=== PATIENT | male | born 1970 ===

== ENCOUNTER 2020-05-12 10:31 | Outpatient (REF) | payer OTHER, SELFPAY ==
[2020-05-12 14:41] LABS: C Reactive Protein 1.41 mg/dL (< or = 0.50); Uric Acid 5.8 mg/dL (3.4-7.0)
[2020-05-12 15:19] LABS: Erythrocyte Sedimentation Rate 23 MM/HR (0-15)
== END 2020-05-12 10:32 | disposition home or self-care (01) ==
LOC: HO.WFDLDS 10:31
PROVIDERS: Visit Provider Hospitalist
DX: M79.672 Pain in left foot (principal)
CPT/HCPCS: 36415; 84550; 85652; 86140

== ENCOUNTER 2020-06-29 18:41 | Inpatient (IN) | payer OTHER, SELFPAY ==
--- NOTE | 2020-06-29 | ECG_ITS ---
Test Reason : CHEST PAIN Blood Pressure : / mmHG Vent. Rate : 083 BPM Atrial Rate : 083 BPM P-R Int : 160 ms QRS Dur : 092 ms QT Int : 402 ms P-R-T Axes : 070 013 063 degrees QTc Int : 472 ms Sinus rhythm with frequent Premature ventricular complexes Intra-ventricular conduction delay Abnormal ECG No previous ECGs available Referred By: Generic ED Physician Electronically Signed By:LAWANDA FELICIANO MD
--- NOTE | 2020-06-29 | XR_ITS ---
EXAMINATION: XR CHEST CLINICAL INFORMATION: Chest pain COMPARISON: 11/23/2012 TECHNIQUE: 2 views of the chest were obtained. FINDINGS: Again seen are old healed left rib and clavicular/shoulder fractures. No other significant abnormality is noted involving the heart, lungs, mediastinum, bony thorax or soft tissues. XR/XR chest 2V IMPRESSION: No acute intrathoracic disease
[2020-06-29 19:18] VITALS: BP 155/95; PULSE 78; RESP 18; TEMP 36.2; O2SAT 96; BMI 28.1
--- NOTE | 2020-06-29 20:23 | ED.CHESTPAIN ---
HPI - Chest Pain General Chief Complaint: Chest Pain Stated Complaint: Chest Pain Time Seen by Provider: 06/29/20 20:23 Source: patient Mode of arrival: ambulatory Limitations: no limitations History of Present Illness HPI narrative: patient with no known coronary artery disease very healthy person as such nonsmoker went for bicycle ride around 1500 which he does all the time after half an hour of bike riding noticed mid chest pain heaviness feeling radiating to left arm both arms lasted for about an hour came home check the blood pressure was 184/114 with pulse of 70 repeat blood pressure was 189/105 with pulse rate of 68 patient denied any chest pain but feels funny in the chest at this time. Patient denied any shortness of breath cough syncope or leg swelling MD complaint: chest pain and chest heaviness Onset (ago): hour(s) (1500) Timing of current episode: constant Prior episodes: No Onset: during exertion Pain location: substernal Pain radiation: right arm and left arm Severity: moderate Quality: tightness Relieving factors: nothing Exacerbating factors: nothing Related Data Home Medications Medication Instructions Recorded Confirmed No Known Home Meds 06/29/20 06/29/20 Allergies Allergy/AdvReac Type Severity Reaction Status Date / Time No Known Allergies Allergy Verified 06/29/20 19:18 [facility] Past Medical History Medical History No known health problems Social History Social History Smoked in Last 30 Days: No Use of substances other than those prescribed or required for medical reasons: No Substance Use Type: Marijuana Advance Directives: No Physical Exam Vital Signs: Vital Signs: Last Vital Signs Temp 98.2 F 06/29/20 21:16 Pulse 59 06/30/20 00:35 Resp 14 06/30/20 00:35 BP 149/82 H 06/30/20 00:35 Pulse Ox 96 06/30/20 00:35 Body Mass Index 28.1 Appearance: Alert. Oriented X3. No acute distress. Eyes: Pupils equal, round and reactive to light. ENT: Pharynx normal. Neck: Normal inspection. Neck supple. CVS: Normal heart rate and rhythm. Pulses normal. Respiratory: No respiratory distress. Breath sounds normal. Abdomen: Soft and nontender. Skin: Skin warm and dry. Normal skin color. Normal skin turgor. Extremities: No lower extremity edema. Good range of movement Neuro: Oriented X 3. No motor deficit. No sensory deficit. Course Course Course Narrative: patient with typical cardiac symptoms came with the chest pain no acute STT wave changes in the cardiogram but troponin was 404 which is elevated after arrival patient did not have any chest pain patient was given aspirin and nitro paste on arrival. Case discussed with Dr. Morocho advised to start on heparin planned for cardiac catheterization tomorrow. Patient denies any chest pain at this time MDM - Chest Pain Differential Diagnosis Differential diagnosis: Likely stable angina, unstable angina pectoris and st elevation myocardial infarction Medical Records Data Attestation: I reviewed the patient's medical records. Lab Data Attestation: I reviewed the patient's lab results. Result diagrams: 06/29/20 21:30 06/29/20 21:30 Labs: Lab Results 06/29/20 06/29/20 06/29/20 Range/Units 21:30 21:30 21:30 WBC 11.7 H (4.8-10.8) X10*3/uL RBC 4.71 (4.60-5.80) X10*6/uL Hgb 14.6 (14.0-18.0) g/dl Hct 42.5 (42-52) % MCV 90.2 (80-98) fL MCH 31.0 (27.0-33.0) pg MCHC 34.4 (31.0-36.0) g/dl RDW 11.9 (11.0-16.0) % Plt Count 263 (160-400) X10*3/uL MPV 9.9 (9.4-12.4) fL Immature Gran % (Auto) 0.5 H (0.0-0.4) % Neut % (Auto) 80.4 H (45-73) % Lymph % (Auto) 14.3 L (20-40) % [place] % (Auto) 4.5 (2-11) % Eos % (Auto) 0.1 (0-4) % Baso % (Auto) 0.2 (0-2) % Lymph # (Auto) 1.7 (1.2-4.9) X10*3/uL [place] # (Auto) 0.5 (0.1-1.2) X10*3/uL Eos # (Auto) 0.0 (0.0-0.4) X10*3/uL Baso # (Auto) 0.0 (0.0-0.2) X10*3/uL Abs Immat Gran (auto) 0.06 H (0.00-0.03) X10*3/uL Absolute Neuts (auto) 9.4 H (2.0-8.3) X10*3/uL Absolute Nucleated RBC 0.000 (0.0-0.012) X10*3/uL Nucleated RBC % (auto) 0.0 (0.0-0.2) /100WBC PT 11.9 (10.8-13.0) SEC INR 1.0 (0.9-1.1) APTT 29.6 (24.1-38.0) SEC Sodium 136 (135-145) mmol/L Potassium 4.3 (3.3-5.1) mmol/l Chloride 99 (96-108) mmol/L Carbon Dioxide 26 (22-29) mmol/L Anion Gap 15 (12-20) BUN 12 (9-16) mg/dL Creatinine 0.77 (0.5-1.4) mg/dL Estim Creat Clear Calc 116.0 Estimated GFR > 60 Random Glucose 109 (60-115) mg/dL Calcium 9.8 (8.4-10.2) mg/dL Troponin I High Sens (<3.5-35.0) ng/L 06/29/20 Range/Units 21:30 WBC (4.8-10.8) X10*3/uL RBC (4.60-5.80) X10*6/uL Hgb (14.0-18.0) g/dl Hct (42-52) % MCV (80-98) fL MCH (27.0-33.0) pg MCHC (31.0-36.0) g/dl RDW (11.0-16.0) % Plt Count (160-400) X10*3/uL MPV (9.4-12.4) fL Immature Gran % (Auto) (0.0-0.4) % Neut % (Auto) (45-73) % Lymph % (Auto) (20-40) % [place] % (Auto) (2-11) % Eos % (Auto) (0-4) % Baso % (Auto) (0-2) % Lymph # (Auto) (1.2-4.9) X10*3/uL [place] # (Auto) (0.1-1.2) X10*3/uL Eos # (Auto) (0.0-0.4) X10*3/uL Baso # (Auto) (0.0-0.2) X10*3/uL Abs Immat Gran (auto) (0.00-0.03) X10*3/uL Absolute Neuts (auto) (2.0-8.3) X10*3/uL Absolute Nucleated RBC (0.0-0.012) X10*3/uL Nucleated RBC % (auto) (0.0-0.2) /100WBC PT (10.8-13.0) SEC INR (0.9-1.1) APTT (24.1-38.0) SEC Sodium (135-145) mmol/L Potassium (3.3-5.1) mmol/l Chloride (96-108) mmol/L Carbon Dioxide (22-29) mmol/L Anion Gap (12-20) BUN (9-16) mg/dL Creatinine (0.5-1.4) mg/dL Estim Creat Clear Calc Estimated GFR Random Glucose (60-115) mg/dL Calcium (8.4-10.2) mg/dL Troponin I High Sens 404.3 H (<3.5-35.0) ng/L ECG Data ECG #1: Attestation: I personally reviewed and interpreted this ECG as follows: ECG interpretation date: 06/29/20 ECG interpretation time: 18:47 Prior ECG tracings: not available for review Interpretation: sinus rhythm with heart rate 83 frequent unifocal PVCs no acute ST T wave changes normal axis impression no acute ischemia Critical Care Time Critical Care Time Critical Care Time: Yes Total Critical Care Time: 35 Attestation: critical care involved only patient care and medical decision making Discharge Plan Discharge Clinical Impression: Acute non-ST elevation myocardial infarction (NSTEMI) Patient Disposition: Admitted As Inpatient
[2020-06-29 21:16] VITALS: BP 163/94; PULSE 74; PULSE 75; RESP 17; TEMP 36.8; O2SAT 96
[2020-06-29] MEDS: Aspirin 81 MG TAB.CHEW 324 MG PO (21:55)
[2020-06-29 22:04] LABS: Basophils Percent Auto 0.2 % (0-2); Eosinophils Percent Auto 0.1 % (0-4); Hematocrit 42.5 % (42-52); Hemoglobin 14.6 g/dl (14.0-18.0); Imm Gran Abs Auto 0.06 X10*3/uL (0.00-0.03); Imm Gran Pct Auto 0.5 % (0.0-0.4); Lymphocytes Absolute Auto 1.7 X10*3/uL (1.2-4.9); Lymphocytes Percent Auto 14.3 % (20-40); Mean Corpuscular HGB Conc 34.4 g/dl (31.0-36.0); Mean Corpuscular Volume 90.2 fL (80-98); Mean Platelet Volume 9.9 fL (9.4-12.4); Monocytes Absolute Auto 0.5 X10*3/uL (0.1-1.2); Monocytes Percent Auto 4.5 % (2-11); Neutrophils Absolute Auto 9.4 X10*3/uL (2.0-8.3); Neutrophils Percent Auto 80.4 % (45-73); Platelet Count 263 X10*3/uL (160-400); Red Blood Count 4.71 X10*6/uL (4.60-5.80); Red Cell Distribution Width 11.9 % (11.0-16.0); White Blood Count 11.7 X10*3/uL (4.8-10.8)
[2020-06-29 22:05] LABS: MANUAL DIFF FLAG NO
[2020-06-29 22:12] LABS: Prothrombin Time 11.9 SEC (10.8-13.0)
[2020-06-29 22:14] LABS: Partial Thromboplastin Time 29.6 SEC (24.1-38.0)
[2020-06-29 22:28] LABS: Anion Gap 15 (12-20); Blood Urea Nitrogen 12 mg/dL (9-16); Calcium 9.8 mg/dL (8.4-10.2); Carbon Dioxide 26 mmol/L (22-29); Chloride 99 mmol/L (96-108); Estimated Glomerular Filt Rate > 60; Glucose Random 109 mg/dL (60-115); Potassium 4.3 mmol/l (3.3-5.1); Sodium 136 mmol/L (135-145)
[2020-06-29 22:37] LABS: Troponin-I High Sensitivity 404.3 ng/L (<3.5-35.0)
--- NOTE | 2020-06-29 22:47 | PC.NURSE ---
PROVIDER AT BEDSIDE SPEAKING WITH PATIENT ABOUT STAYING DUE TO ELEVATED TROP.
[2020-06-29] MEDS: Heparin Sodium,Porcine 5,000 UNIT/ML VIAL 5000 UNIT IVPUSH (23:18)
[2020-06-29] MEDS: Heparin Sodium,Porcine/1/2NS 25,000 UNIT/250 ML IV.SOLN 9.8 UNIT IVCONT (23:27)
[2020-06-30] VITALS (9 sets, daily range): BP systolic 149–171; BP diastolic 81–97; PULSE 52–83; RESP 14–23; TEMP 36.3–36.8; O2SAT 96–98
--- NOTE | 2020-06-30 | ECG_ITS ---
Test Reason : ORDER Blood Pressure : / mmHG Vent. Rate : 058 BPM Atrial Rate : 058 BPM P-R Int : 146 ms QRS Dur : 100 ms QT Int : 476 ms P-R-T Axes : 046 010 031 degrees QTc Int : 467 ms Sinus bradycardia Otherwise normal ECG When compared with ECG of 29jun2020 Premature ventricular complexes are no longer Present Referred By: Donn Abrams Electronically Signed By:LAWANDA FELICIANO MD
--- NOTE | 2020-06-30 00:30 | P.HPHOSP_ITS ---
History of Present Illness Date of Service: 06/30/20 Chief Complaint: Chest pain this is a 50-year-old male with no past medical history presents the hospital with complaints of chest pain after going by writing. Patient reports that he is usually very active and by x-ray no similar episode in the past. He reports that while biking he developed midsternal chest pressure that was moderate, radiating to his left arm, constant, mildly improved with stopping biking in going but was still there when he came into the ED. He reports no history of similar episode. No shortness of breath or palpitations. he has no fever or chills, has no headache or change in vision, no cough, no abdominal pain nausea or vomiting, no urinary symptoms no lower extremity edema. No numbness or tingling. On arrival to the ED hemodynamically stable with no significant abnormal vitals Labs are significant for WBC count of 11.7, troponin high sensitivity of 404.3, EKG significant sinus rhythm with frequent PVCs with no other abnormality. Cardiology is consulted, patient started on heparin GGT and will be admitted for further management past medical history: Denies Surgical history: Denies family history: Denies any family history of cardiac disease in father or mother Social history: works in [employer], physically very active and bicycles every day, comes from, Denies tobacco use, do next beer 1-4 beers every other day, no history of withdrawals, smokes marijuana 1 to 2 times a week Review of Systems Review of Systems: Yes all other systems are reviewed and are negative [facility] Medical History No known health problems Social History Smoked in Last 30 Days: No Use of substances other than those prescribed or required for medical reasons: No Substance Use Type: Marijuana Advance Directives: No Meds Allergies Allergy/AdvReac Type Severity Reaction Status Date / Time No Known Allergies Allergy Verified 06/29/20 19:18 Home Medications Medication Instructions Recorded Confirmed Type No Known Home Meds 06/29/20 06/29/20 History Physical Exam Vital Signs and Narrative: Vital Signs: Last Vital Signs Temp 98.2 F 06/29/20 21:16 Pulse 75 06/29/20 21:16 Resp 17 06/29/20 21:16 BP 163/94 H 06/29/20 21:16 Pulse Ox 96 06/29/20 21:16 Body Mass Index 28.1 Const: General: cooperative and no acute distress Orientation/consciousness: patient oriented x3 Eyes: General: appearance normal, both eyes and all related structures Pupils: Equal, round and reactive pupils present Resp: Effort & Inspection: normal respiratory effort and able to speak in complete sentences Auscultation: clear to auscultation bilaterally Cardio: Rate: regular rate Rhythm: regular rhythm GI: Palpation (GI): Soft to palpation Auscultation: normal bowel sounds Skin: General skin exam: no rashes or lesions noted Neuro: General: patient oriented x3 Cranial nerves: Yes Equal, round and reactive pupils present Cognition (Neuro): normal cognition Extrem: General: Yes normal to inspection and Yes no pedal edema Results Labs CBC and Chem 7: 06/29/20 21:30 06/29/20 21:30 Labs: Laboratory Results - last 24 hr 06/29/20 06/29/20 06/29/20 21:30 21:30 21:30 MCV 90.2 MCH 31.0 MCHC 34.4 RDW 11.9 Plt Count 263 MPV 9.9 Immature Gran % (Auto) 0.5 H Neut % (Auto) 80.4 H Lymph % (Auto) 14.3 L [place] % (Auto) 4.5 Eos % (Auto) 0.1 Baso % (Auto) 0.2 Lymph # (Auto) 1.7 [place] # (Auto) 0.5 Eos # (Auto) 0.0 Baso # (Auto) 0.0 Abs Immat Gran (auto) 0.06 H Absolute Neuts (auto) 9.4 H Absolute Nucleated RBC 0.000 Nucleated RBC % (auto) 0.0 PT 11.9 INR 1.0 APTT 29.6 Anion Gap 15 Estim Creat Clear Calc 116.0 Estimated GFR > 60 Random Glucose 109 Calcium 9.8 Troponin I High Sens 06/29/20 21:30 MCV MCH MCHC RDW Plt Count MPV Immature Gran % (Auto) Neut % (Auto) Lymph % (Auto) [place] % (Auto) Eos % (Auto) Baso % (Auto) Lymph # (Auto) [place] # (Auto) Eos # (Auto) Baso # (Auto) Abs Immat Gran (auto) Absolute Neuts (auto) Absolute Nucleated RBC Nucleated RBC % (auto) PT INR APTT Anion Gap Estim Creat Clear Calc Estimated GFR Random Glucose Calcium Troponin I High Sens 404.3 H ECG Interpretation: normal sinus rhythm with PVCs Imaging Radiologist's Impressions: Impressions Chest X-Ray 06/29/20 00:00 IMPRESSION: No acute intrathoracic disease Assessment and Plan (1) Acute non-ST elevation myocardial infarction (NSTEMI): Status: Acute (2) Leukocytosis: Status: Acute still 50-year-old male with no history of medical problems presents to the hospital with chest pain found to have NSTEMI # NSTEMI - chest pain with elevated troponin, no EKG changes - has no significant risk factors Plan: - Start on heparin GGT in the ED, received 325 aspirin - continue heparin drip, will start him on aspirin 81 mg daily, atorvastatin high-dose - echocardiogram - cardiology consult # leukocytosis - most likely reactive - follow CBC
[2020-06-30 00:59] LABS: COVID-19 Test Negative (Negative)
--- NOTE | 2020-06-30 01:37 | PC.NURSE ---
AMBULATES WITH A STEADY GAIT TO BATHROOM.
--- NOTE | 2020-06-30 01:45 | PC.NURSE ---
RETURNED FROM BATHROOM. BACK ON MONITOR. SR/SB. NO APPARENT DISTRESS. BREATHING EVEN, NON-LABORED.
--- NOTE | 2020-06-30 03:31 | PC.NURSE ---
called to give report. Rosa will call back when out of room.
--- NOTE | 2020-06-30 03:45 | PC.NURSE ---
nurse to nurse given to Rosa RN.
--- NOTE | 2020-06-30 03:46 | CA_ITS ---
Transthoracic Echocardiogram Patient (Last, First, Middle): Luther Stewart, Gender: Male Date of : 1970 Age: 50 Procedure Date: 06/30/2020 Procedure Type: Transthoracic Echocardiogram Location: [facility] – [place] Height: 170.18 cm Weight: 81.65 kg BSA: 1.93 m2 Heart Rate: bpm BP: 149 / 82 mmHg Picking Supervisor: Referring MD: Janette Mckay MD Symptoms: NSTEMI Study Quality: Good ECG Rhythm: Sinus Conclusions: - The left ventricular systolic function is low normal. The visually estimated ejection fraction is between 50-55%. - The inferolateral wall, the apical inferior, and mid inferior segments are hypokinetic. - The basal inferior segment is akinetic. Findings Left Ventricle Normal left ventricular cavity size. There is mildly increased left ventricular wall thickness. The left ventricular systolic function is low normal. The visually estimated ejection fraction is between 50-55%. There is no evidence of regional wall motion abnormalities. Diastolic function is normal for age. Wall Motion Rest Echo Findings The inferolateral wall, the apical inferior, and mid inferior segments are hypokinetic. The basal inferior segment is akinetic. Right Ventricle Normal right ventricular cavity size and systolic function. Atria Both atria are normal in size. Interatrial shunt cannot be excluded by color Doppler. Aortic Valve Normal aortic valve structure and function. There is no aortic valve stenosis. There is no aortic valve regurgitation. Mitral Valve Normal mitral valve structure and function. There is trace mitral valve regurgitation. There is no mitral valve stenosis. Pulmonic Valve The pulmonic valve is likely normal. Tricuspid Valve Normal tricuspid valve structure and function. There is trace tricuspid valve regurgitation. Normal right atrial pressure. There is no evidence of pulmonary hypertension. Great Vessels All visible segments of the aorta are normal in size. The pulmonary artery was not well visualized. Venous The inferior vena cava is normal in size and collapses greater than 50% with inspiration. Pericardium/Pleural There is no evidence of pericardial effusion. Prior Study Comparison No prior study available for comparison. Measurements 2D Linear Measurements IVSd: 1.13 0.6-0.9/0.6-1.0 cm LVIDd: 4.56 3.9-5.3/4.2-5.9 cm LVIDd Index: 2.36 2.4-3.2/2.2-3.1 cm/m2 LVIDs: 3.85 2.0-3.6 cm LVPWd: 1.04 0.7-1.1 cm Ao Root: 3.30 2.1-3.5 cm LA Diam: 3.40 2.7-3.8/3.0-4.0 cm LAIDs Index: 1.76 1.5-2.3 cm/m2 LV Mass: 218.40 67-162/88-224 g LV Mass Index: 113.16 43-95/49-115 g/m2 LVOT Diam: 2.10 3.0+(-)1.3 cm Mitral Valve MV Pk E: 0.70 MV PK A: 0.78 MV Decel Time: 227.00 E/A: 0.90 E'Lateral: 12.90 E'Medial: 5.71 E/E' Med: 12.30 E/E' Lat: 5.40 PHT: 66.00 MVA PHT: 3.33 Decel [place]: 3.10 Aortic Valve AoV Pk Ankur: 1.53 AoV Mn Ankur: 0.93 AoV VTI: 0.35 AoV Pk Grad: 9.00 Aov Mn Grad: 4.00 [place] Cont.VTI: 2.61 LVOT LVOT Pk Ankur: 1.23 LVOT Mn Ankur: 0.73 LVOT VTI: 0.26 LVOT Pk Grad: 6.00 LVOT Mn Grad: 3.00 LVOT Diam: 2.10 LVOT Area: 3.46 Diastolic Function MV Pk E: 0.70 MV Pk A: 0.78 E/A: 0.90 E'Medial: 5.71 E/E' Med: 12.30 E' Laterial: 12.90 E/E' Lat: 5.40 Tricuspid Valve TR Pk Ankur: 2.25 TR Pk Grad: 20.00 Great Vessels Aorta Ao Root-2D: 3.30 2.0-3.7 cm Ao Asc: 3.30 2.1-3.4 cm Pulmonary Valve PV Pk Ankur: 0.84 Peak PV Grad: 3.00 Updated in Other Vendor System with Status of Final Donn Abrams MD electronically signed on 06/30/2020 1:09:49 PM with status of Final
[2020-06-30] MEDS: Atorvastatin Calcium 80 MG TABLET PO (04:26)
[2020-06-30 06:57] LABS: PTT Heparin Drip 56.7 SEC (53-77.9)
--- NOTE | 2020-06-30 08:55 | MHC.CM.PN ---
CM met with Patient. Patient lives in a house with his 13 year old Daughter and his Daughter's Mother. 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 Patient's goal is to return home and CM has initiated and will follow for dc planning.
[2020-06-30] MEDS: Aspirin 81 MG TAB.CHEW PO (09:19)
[2020-06-30] MEDS: Nitroglycerin 0.4 MG TAB.SUBL SUBLINGUAL (11:11)
[2020-06-30] MEDS: Ticagrelor 90 MG TABLET 180 MG PO (11:11)
--- NOTE | 2020-06-30 11:40 | P.CONCA_ITS ---
History of Present Illness History of Present Illness Date of Consult: June 30, 2020 Requesting physician: Michele Recinos Chief complaint: Chest Pain/NSTEMI Narrative: Pleasant 50-year-old gentleman here for chest discomfort. Yeste rday he was riding his bike around 15:45 when he started feeling indigestion like feeling. He said he stopped and rested but the discomfort did not improve. He said he rolled back to his car and then came back home. His girlfriend checked his blood pressure which was elevated. After that he was brought into the hospital. He ruled in for NSTEMI. His ECG initially showed subtle inferior ST elevations. He is still having approximately 2 to 3/10 indigestion like feeling. His blood pressure is mildly elevated. He has been on heparin drip. He denies any bleeding issues. He has not been on any medications before. He has been very active including biking and regular exercise with no symptoms before . Review of Systems Review of Systems: Chest discomfort. Yes all other systems are reviewed and are negative PMFSH Past Medical History Medical History No known health problems Social History Social History Household Members: Significant Other and Children Housing: House Do you presently have visiting nurse or other home services: No Smoking Status: Never smoker Smoked in Last 30 Days: No Second Hand Smoke Exposure: No Use of substances other than those prescribed or required for medical reasons: Yes Substance Use Type: Marijuana Substance Use Frequency: Weekly Last Used Substance: Days (ago) Have you been hit, kicked, punched, or otherwise hurt by someone within the past year? If so, by whom?: No Do you feel safe in your current relationship?: Yes Is there a partner from a previous relationship who is making you feel unsafe now?: No Are you made to feel afraid or neglected: No Advance Directives: No Do you have thoughts of harming others: None Do you have a plan to hurt others: No Plan Recently lost weight without trying: No service: No Current occupational status: employed Meds Allergies Allergy/AdvReac Type Severity Reaction Status Date / Time No Known Allergies Allergy Verified 06/29/20 19:18 Home Medications Medication Instructions Recorded Confirmed Type No Known Home Meds 06/29/20 06/29/20 History Physical Exam Vital Signs: Vital Signs: Last Vital Signs Temp 97.9 F 06/30/20 07:59 Pulse 83 06/30/20 11:11 Resp 18 06/30/20 07:59 BP 171/97 H 06/30/20 07:59 Pulse Ox 97 06/30/20 07:59 Body Mass Index 28.1 GENERAL APPEARANCE: in no acute distress, well developed, well nourished. HEENT: unremarkable. HEAD: normocephalic, atraumatic. NECK/THYROID: no carotid bruit, no jugular venous distention. SKIN: no suspicious lesions, warm and dry. HEART: no murmurs, regular rate and rhythm, S1, S2 normal. LUNGS: clear to auscultation bilaterally. ABDOMEN: normal, bowel sounds present, soft, nontender, nondistended. EXTREMITIES: no clubbing, cyanosis, or edema. PERIPHERAL PULSES: equal. NEUROLOGIC: nonfocal, alert and oriented. PSYCH: mood/affect full range. Results Labs and Meds Result diagrams: 06/29/20 21:30 06/29/20 21:30 Lab results: Laboratory Results - last 24 hr 06/29/20 06/29/20 06/29/20 21:30 21:30 21:30 WBC 11.7 H RBC 4.71 Hgb 14.6 Hct 42.5 MCV 90.2 MCH 31.0 MCHC 34.4 RDW 11.9 Plt Count 263 MPV 9.9 Immature Gran % (Auto) 0.5 H Neut % (Auto) 80.4 H Lymph % (Auto) 14.3 L [place] % (Auto) 4.5 Eos % (Auto) 0.1 Baso % (Auto) 0.2 Lymph # (Auto) 1.7 [place] # (Auto) 0.5 Eos # (Auto) 0.0 Baso # (Auto) 0.0 Abs Immat Gran (auto) 0.06 H Absolute Neuts (auto) 9.4 H Absolute Nucleated RBC 0.000 Nucleated RBC % (auto) 0.0 PT 11.9 INR 1.0 APTT 29.6 PTT (Heparin Protocol) Sodium 136 Potassium 4.3 Chloride 99 Carbon Dioxide 26 Anion Gap 15 BUN 12 Creatinine 0.77 Estim Creat Clear Calc 116.0 Estimated GFR > 60 Random Glucose 109 Calcium 9.8 Troponin I High Sens COVID-19 ([facility]) COVID-19 Clin Com 06/29/20 06/30/20 06/30/20 21:30 00:32 00:32 WBC RBC Hgb Hct MCV MCH MCHC RDW Plt Count MPV Immature Gran % (Auto) Neut % (Auto) Lymph % (Auto) [place] % (Auto) Eos % (Auto) Baso % (Auto) Lymph # (Auto) [place] # (Auto) Eos # (Auto) Baso # (Auto) Abs Immat Gran (auto) Absolute Neuts (auto) Absolute Nucleated RBC Nucleated RBC % (auto) PT INR APTT PTT (Heparin Protocol) Sodium Potassium Chloride Carbon Dioxide Anion Gap BUN Creatinine Estim Creat Clear Calc Estimated GFR Random Glucose Calcium Troponin I High Sens 404.3 H 1579.2 H D COVID-19 ([facility]) Negative COVID-19 Clin Com See Note 06/30/20 05:27 WBC RBC Hgb Hct MCV MCH MCHC RDW Plt Count MPV Immature Gran % (Auto) Neut % (Auto) Lymph % (Auto) [place] % (Auto) Eos % (Auto) Baso % (Auto) Lymph # (Auto) [place] # (Auto) Eos # (Auto) Baso # (Auto) Abs Immat Gran (auto) Absolute Neuts (auto) Absolute Nucleated RBC Nucleated RBC % (auto) PT INR APTT PTT (Heparin Protocol) 56.7 Sodium Potassium Chloride Carbon Dioxide Anion Gap BUN Creatinine Estim Creat Clear Calc Estimated GFR Random Glucose Calcium Troponin I High Sens COVID-19 ([facility]) COVID-19 Clin Com Assessment and Plan (1) Acute non-ST elevation myocardial infarction (NSTEMI): Status: Acute Pleasant 50-year-old gentleman with the chest discomfort and NSTEMI. He initially had subtle inferior ST elevations which are not present anymore. He still has some indigestion like feeling ongoing. He is on heparin drip. Continue the aspirin. I am adding Brilinta 180 mg load. Continue metoprolol b.i.d.. I am putting nitroglycerin paste on him. I discussed with him about cardiac catheterization and he agrees. I am going to transfer him to [facility] progressive care unit. He will stay NPO as there is a possibility that he will need cardiac catheterization later today. Thank you for allowing me to participate in the care of your patient. Please feel free to contact me if you have any questions. Procedures Abscess I/D Date of Service: 06/30/20
[2020-06-30 12:07] LABS: PTT Heparin Drip 48.7 SEC (53-77.9)
--- NOTE | 2020-06-30 12:25 | PM.DS ---
DS: Providers Provider Date of admission: 06/30/20 00:29 Primary care physician: None Physician Consults: 06/30/20 03:46 Consult to Cardiology Routine Consulting Provider: Srinivas Morocho Reason for consultation: NSTEMI Has provider been notified: Yes DS: Diagnosis Discharge Diagnosis (1) Acute non-ST elevation myocardial infarction (NSTEMI): Status: Acute DS: Medications Discharge Medications Home Medications: Previous Rx's Medication Instructions Recorded aspirin 81 mg PO DAILY 1 Days #1 tab 06/30/20 atorvastatin 80 mg PO BEDTIME 1 Days #1 tab 06/30/20 heparin (porcine) 3,265.88 unit IVPUSH BOLUS PRN 1 06/30/20 Days ml heparin(porcine) in 0.45% NaCl 25,000 unit CONTINUOUS IV INFUSION 06/30/20 .Q0M 1 Days ml metoprolol tartrate 25 mg PO BID 1 Days #2 tab 06/30/20 nitroglycerin [Nitro-Bid] 0.5 inch TRANSDERMAL RQ6H WHILE 06/30/20 AWAKE 1 Days g nitroglycerin [Nitrostat] 0.4 mg SUBLINGUAL Q5M PRN 1 Days 06/30/20 tab DS: Summary Hospital Course Hospital Course: Admission note HPI this is a 50-year-old male with no past medical history presents the hospital with complaints of chest pain after going by writing. Patient reports that he is usually very active and by x-ray no similar episode in the past. He reports that while biking he developed midsternal chest pressure that was moderate, radiating to his left arm, constant, mildly improved with stopping biking in going but was still there when he came into the ED. He reports no history of similar episode. No shortness of breath or palpitations. he has no fever or chills, has no headache or change in vision, no cough, no abdominal pain nausea or vomiting, no urinary symptoms no lower extremity edema. No numbness or tingling. On arrival to the ED hemodynamically stable with no significant abnormal vitals Labs are significant for WBC count of 11.7, troponin high sensitivity of 404.3, EKG significant sinus rhythm with frequent PVCs with no other abnormality. Cardiology is consulted, patient started on heparin GGT and will be admitted for further management Hospital course The patient was admitted to the hospital on heparin drip for treatment of acute coronary syndrome suggested by EKG and elevated troponin. Her night was uneventful but her high sensitive troponin increased from 404 too 1579. he received aspirin, atorvastatin, nitroglycerin as needed with fair response. Evaluated by Cardiology in the morning who recommended transfer for cardiac angiogram at a tertiary center pending echo reports. To continue heparin drip at time of discharge Time Spent with Patient Time attestation: Total time spent providing and/or coordinating discharge services: Physical Exam Vital Signs: Vital Signs: Last Vital Signs Temp 97.9 F 06/30/20 07:59 Pulse 83 06/30/20 11:11 Resp 18 06/30/20 07:59 BP 171/97 H 06/30/20 07:59 Pulse Ox 97 06/30/20 07:59 Body Mass Index 28.1 Constitutional : Alert, oriented, not in distress Neck : Normal inspection, Supple Cardiovascular : RRR, S1 S2, no lower extremity edema Respiratory : Good bilateral air entry, no crackles, wheezes or rhonchi Gastrointestinal: soft, lax, Normal bowel sounds, Non tender Skin : Warm/Dry, No rash Neurological : Alert & oriented x3, No focal deficit DS: Data Data Completed and Pending Labs on day of discharge: 06/29/20 ECG 12 lead EKG Stat XR chest 2V Stat 06/29/20 19:23 EKG Documentation DIRECTED 06/29/20 20:30 Aspirin 324 mg PO ONCE ONE Nitroglycerin 2 % Oint [Nitro-Bid] 1 inch TRANSDERMA ONCE ONE 06/29/20 21:30 Basic Metabolic Panel Stat Complete Blood Count Auto Diff Stat Partial Thromboplastin Time Stat Prothrombin Time INR Stat Troponin-I High Sensitivity Stat 06/29/20 22:57 Heparin Sodium,Porcine 5,000 unit IVPUSH BOLUS ONE 06/30/20 ECG 12 lead EKG Stat 06/30/20 00:25 Transfer Order Routine 06/30/20 00:32 COVID-19 ID NOW ([facility]) Stat Troponin-I High Sensitivity Stat 06/30/20 03:46 Atorvastatin Calcium [Lipitor] 80 mg PO ONCE ONE 06/30/20 05:27 PTT Heparin Drip Stat 06/30/20 10:24 Ticagrelor [Brilinta] 180 mg PO ONCE ONE 06/30/20 10:25 Nitroglycerin [Nitrostat] 0.4 mg SUBLINGUAL ONCE ONE 06/30/20 11:38 PTT Heparin Drip Stat Laboratory Last Values WBC 11.7 X10*3/uL (4.8-10.8) H 06/29/20 21:30 RBC 4.71 X10*6/uL (4.60-5.80) 06/29/20 21: Hgb 14.6 g/dl (14.0-18.0) 06/29/20 21: Hct 42.5 % (42-52) 06/29/20 21: MCV 90.2 fL (80-98) 06/29/20 21: MCH 31.0 pg (27.0-33.0) 06/29/20 21: MCHC 34.4 g/dl (31.0-36.0) 06/29/20: RDW 11.9 % (11.0-16.0) 06/29/20 21: Plt Count 263 X10*3/uL (160-400) 06/29/20 21: MPV 9.9 fL (9.4-12.4) 06/29/20 21: Immature Gran % (Auto) 0.5 % (0.0-0.4) H 06/29/20 21: Neut % (Auto) 80.4 % (45-73) H 06/29/20 21: Lymph % (Auto) 14.3 % (20-40) L 06/29/20 21: Rooks % (Auto) 4.5 % (2-11) 06/29/20: Eos % (Auto) 0.1 % (0-4) 06/29/20: Baso % (Auto) 0.2 % (0-2) 06/29/20 21: Lymph # (Auto) 1.7 X10*3/uL (1.2-4.9) 06/29/20: Rooks # (Auto) 0.5 X10*3/uL (0.1-1.2) 06/29/20 21: Eos # (Auto) 0.0 X10*3/uL (0.0-0.4) 06/29/20 21: Baso # (Auto) 0.0 X10*3/uL (0.0-0.2) 11/22/20 21:30 Abs Immat Gran (auto) 0.06 X10*3/uL (0.00-0.03) H 06/29/20 21:30 Absolute Neuts (auto) 9.4 X10*3/uL (2.0-8.3) H 06/29/20 21:30 Absolute Nucleated RBC 0.000 X10*3/uL (0.0-0.012) 06/29/20 21: Nucleated RBC % (auto) 0.0 /100WBC (0.0-0.2) 06/29/20 21:30 PT 11.9 SEC (10.8-13.0) 06/29/20 21:30 INR 1.0 (0.9-1.1) 06/29/20 21:30 APTT 29.6 SEC (24.1-38.0) 06/29/20 21:30 PTT (Heparin Protocol) 48.7 SEC (53-77.9) L 06/30/20 11:38 Sodium 136 mmol/L (135-145) 06/29/20 21:30 Potassium 4.3 mmol/l (3.3-5.1) 06/29/20 21:30 Chloride 99 mmol/L (96-108) 06/29/20 21:30 Carbon Dioxide 26 mmol/L (22-29) 06/29/20 21:30 Anion Gap 15 (12-20) 06/29/20 21:30 BUN 12 mg/dL (9-16) 06/29/20 21:30 Creatinine 0.77 mg/dL (0.5-1.4) 06/29/20 21:30 Estim Creat Clear Calc 116.0 06/29/20 21:30 Estimated GFR > 60 06/29/20 21:30 Random Glucose 109 mg/dL (60-115) 06/29/20 21:30 Calcium 9.8 mg/dL (8.4-10.2) 06/29/20 21:30 Troponin I High Sens 1579.2 ng/L (<3.5-35.0) H D 06/30/20 00:32 COVID-19 ([facility]) Negative (Negative) 06/30/20 00:32 COVID-19 Clin Com See Note 06/30/20 00:32 Discharge Plan Discharge Patient Disposition: Xfer Acute Care Hospital Referrals: Physician,None [Primary Care Provider] - Discharge Medications: New nitroglycerin [Nitrostat] 0.4 mg Tablet, Sublingual 0.4 mg sublingual Q5M PRN (Reason: Chest Pain) 1 Days RF: 0 aspirin 81 mg Tablet,Chewable 81 mg PO DAILY 1 Days Qty: 1 RF: 0 Nitro-Bid 2 % Ointment 0.5 inch transdermal RQ6H WHILE AWAKE 1 Days RF: 0 heparin (porcine) 5,000 unit/mL Solution 3,265.88 unit IVPUSH BOLUS PRN (Reason: 40 Unit/Kg - Heparin Protocol) 1 Days RF: 0 metoprolol tartrate 25 mg Tablet 25 mg PO BID 1 Days Qty: 2 RF: 0 heparin(porcine) in 0.45% NaCl 25,000 unit/250 mL Parenteral Solution 25,000 unit continuous IV infusion .Q0M 1 Days RF: 0 atorvastatin 80 mg Tablet 80 mg PO BEDTIME 1 Days Qty: 1 RF: 0 Discharge Orders: Discharge Order (Routine); Ordered 06/30/20 Ordered By: Michele Recinos Diet: advance to usual diet Activity on Discharge: As tolerated Visit Report Forms: Patient Portal Discharge page Care Plan Goals: read below Health Concerns: read below Plan of Treatment: you have presented to the hospital complaining of chest pain. EKG, heart enzymes were elevated suggesting heart attack. You were admitted to the hospital and treated with IV blood thinners, aspirin and cholesterol medication with fair response as the chest pain decreased. You were evaluated by ship captain who recommended transfer for a cardiac angiogram at a tertiary center.
[2020-06-30] MEDS: Heparin Sodium,Porcine 5,000 UNIT/ML VIAL 3265.88 UNIT IVPUSH (12:32)
== END 2020-06-30 13:00 | disposition short-term general hospital (02) | DRG 190 ==
LOC: HO.ED 06-30 00:46 → HO.IMC 06-30 03:21
PROVIDERS: Admitting Provider Internal Medicine; Emergency Provider Internal Medicine; Visit Provider Student in an Organized Health Care Education/Training Program
DX: I21.4 Non-ST elevation (NSTEMI) myocardial infarction (principal); D72.829 Elevated white blood cell count, unspecified; Z20.828 Contact with and (suspected) exposure to other viral communicable diseases
CPT/HCPCS: 36415; 71046; 80048; 84484; 85025; 85610; 85730; 87635; 93005; 93306; 96365; 96375; 99284; 99291; U0003

== ENCOUNTER → 2020-07-14 11:04 | Outpatient (BNVA) | payer OTHER, SELFPAY | PROVIDERS: Visit Provider Nurse Practitioner Family | DX: Z76.89 Persons encountering health services in other specified circumstances (principal) ==

== ENCOUNTER → 2020-07-18 07:53 | Outpatient (REF) | payer OTHER, SELFPAY ==
--- NOTE | 2020-07-18 07:55 | CA_ITS ---
Acquisition Time: 2020-07-18 08:06:10 Total Exercise Time: 00:10:15 Test Indications: Post MT Medications: ASA ATORVASTATIN CLOPIDOGREL ZETIA METOPROLOL FENOFIBRATE Protocol: LAURA Max HR: 150 BPM 88% of Pred: 169 BPM Max BP: 152/082 mmHG Max Work Load: 12.1 METS Exercise stress test using Laura protocol. Total of 10 min 15 sec. METS 12.1. MHR up to 150 . Pt tolerated well, denies any anginal sx. EKG with one isolated PVC seen in recovery. No ischemic changes seen during exercise or in recovery. Normotensive response to exercise. Test reviewed with Dr. Morocho Referred By: Mildred Dueñas Overread By: Rustam Pike
== END ==
LOC: HO.CARD 07:53
PROVIDERS: Visit Provider Nurse Practitioner Family
DX: I25.10 Atherosclerotic heart disease of native coronary artery without angina pectoris (principal)
CPT/HCPCS: 93017

== ENCOUNTER 2020-07-28 10:45 | Outpatient (REF) | payer OTHER, SELFPAY | END 2020-07-28 10:46 | disposition home or self-care (01) | LOC: HO.LAB 10:45 | PROVIDERS: Visit Provider Internal Medicine | DX: Z20.828 Contact with and (suspected) exposure to other viral communicable diseases (principal) | CPT/HCPCS: C9803; U0003 ==

== ENCOUNTER → 2020-08-21 10:15 | Outpatient (BNVA) | payer OTHER, SELFPAY | PROVIDERS: Visit Provider Internal Medicine Cardiovascular Disease | DX: Z76.89 Persons encountering health services in other specified circumstances (principal) ==

== ENCOUNTER 2020-09-26 15:45 | Outpatient (REF) | payer OTHER, SELFPAY | END 2020-09-26 15:46 | disposition home or self-care (01) | LOC: HO.LAB 15:45 | PROVIDERS: Visit Provider Internal Medicine | DX: Z20.822 Contact with and (suspected) exposure to COVID-19 (principal) | CPT/HCPCS: 36415; C9803; U0003; U0005 ==

== ENCOUNTER 2020-10-06 10:45 | Outpatient (REF) | payer OTHER, SELFPAY | END 2020-10-06 10:46 | disposition home or self-care (01) | LOC: HO.LAB 10:45 | PROVIDERS: Visit Provider Internal Medicine | DX: Z20.822 Contact with and (suspected) exposure to COVID-19 (principal) | CPT/HCPCS: 36415; C9803; U0003; U0005 ==

== ENCOUNTER 2020-10-06 11:08 | Outpatient (REF) | payer OTHER, SELFPAY ==
[2020-10-06 12:24] LABS: Cholesterol 133 mg/dL; HDL Cholesterol 39 mg/dL; LDL Cholesterol Calculated 67 mg/dl; Triglycerides 137 mg/dL
== END 2020-10-06 11:09 | disposition home or self-care (01) ==
LOC: HO.LAB 11:08
PROVIDERS: Visit Provider Internal Medicine Cardiovascular Disease
DX: E78.5 Hyperlipidemia, unspecified (principal)
CPT/HCPCS: 36415; 80061

== ENCOUNTER 2020-10-10 08:53 | Outpatient (REF) | payer OTHER, SELFPAY | END 2020-10-10 08:54 | disposition home or self-care (01) | LOC: HO.LAB 08:53 | PROVIDERS: Visit Provider Internal Medicine | DX: Z20.822 Contact with and (suspected) exposure to COVID-19 (principal) | CPT/HCPCS: 36415; C9803; U0003; U0005 ==

== ENCOUNTER → 2020-12-22 10:59 | Outpatient (BNVA) | payer OTHER, SELFPAY | PROVIDERS: Visit Provider Internal Medicine Cardiovascular Disease | DX: E78.5 Hyperlipidemia, unspecified (principal); I10 Essential (primary) hypertension; I25.10 Atherosclerotic heart disease of native coronary artery without angina pectoris | CPT/HCPCS: 93005 ==

== ENCOUNTER → 2022-02-18 14:26 | Outpatient (BNVA) | payer OTHER, SELFPAY | PROVIDERS: Visit Provider Internal Medicine Cardiovascular Disease | DX: I10 Essential (primary) hypertension (principal); E78.5 Hyperlipidemia, unspecified; I20.8 Other forms of angina pectoris | CPT/HCPCS: 93005 ==

== ENCOUNTER 2023-04-13 15:26 | Outpatient (AMB) | payer OTHER, SELFPAY ==
--- NOTE | 2023-04-13 15:41 | MHC.OFFVIS ---
Intake Vital Signs 04/13/23 15:42 Height 5 ft 7 in Weight 183 lb 6.793 oz BMI 28.7 BP 140/94 H Blood Pressure Location Lt brachial Position Sitting Pulse 84 Pulse Source Monitor Intake Visit Reasons: OVERDUE 1 YR FUP (R/S BY US FROM 02/17) Intake Note: Overdue 1 year follow up with EKG. Cane Weigher Required: No Accompanied by: Self / Same As Patient Allergies No Known Allergies Allergy (Verified 04/13/23 15:48) Medication List - Last Reconciled 04/13/23 by Donn Abrams MD aspirin 81 mg PO DAILY 90 days atorvastatin 80 mg PO BEDTIME clopidogrel 75 mg PO DAILY ezetimibe (Zetia) 10 mg PO DAILY fenofibrate nanocrystallized 145 mg PO DAILY metoprolol tartrate 25 mg See Protocol PO BID 90 days nitroglycerin (Nitrostat) 0.4 mg sublingual Q5M PRN 1 day HPI HPI Comments History of Present Illness Details 53-year-old gentleman here for follow-up. He underwent right coronary artery PCI in the setting of NSTEMI. He had residual disease in LAD and left circumflex artery. He underwent stress testing which was unremarkable. He is returning now after 2 years. He continues to bike and stay active as before. No exertional chest discomfort shortness of breath. He has some bruises on his arms from skateboarding and falls. No significant bleeding otherwise. He is taking medications regularly. 04/13/2023: Is here for follow-up. He is denying any chest discomfort shortness of breath. Blood pressure is mildly elevated. He is taking medications regularly. [facility] Medical History (Updated 02/18/22 @ 15:28 by Donn Abrams MD) CAD (coronary artery disease) HLD (hyperlipidemia) HTN (hypertension) No known health problems Surgical History S/P cardiac cath (~06/2020) Family History Father CAD (coronary artery disease) Social History (Updated 04/13/23 @ 15:49 by DREA Horn) Household Members: Significant Other and Children Housing: House Do you presently have visiting nurse or other home services: No Alcohol intake: current Alcohol intake frequency: a few times a week Patient Tobacco Use Status: Never used Tobacco Second Hand Smoke Exposure: No Substance Use Type: Marijuana service: No Current occupational status: employed Review of Systems Const Denies weakness ENT Denies dizziness Card Denies chest pain, Denies chest pain with activity, Denies syncope, Denies rapid heart rate, Denies pedal edema, Denies edema, Denies leg edema, Denies lightheadedness, Denies palpitations, Denies dyspnea, Denies dyspnea on exertion and Denies orthopnea Resp Denies cough, Denies dyspnea and Denies dyspnea on exertion GI Denies hematochezia and Denies change in stool character Musc Denies abnormal gait, Denies muscle cramps, Denies muscle weakness, Denies numbness, Denies radiating pain into limb and Denies tingling Neuro Denies abnormal gait, Denies dizziness, Denies syncope, Denies numbness, Denies tingling and Denies weakness Endo Denies palpitations Physical Exam Vital Signs: Last Vital Signs Pulse 84 04/13/23 15:42 BP 140/94 H 04/13/23 15:42 BMI result Body Mass Index 28.7 GENERAL APPEARANCE: in no acute distress, pleasant. NECK: no carotid bruit, no jugular venous distention. SKIN: no suspicious lesions, warm and dry. HEART: no murmurs, regular rate and rhythm. LUNGS: clear to auscultation bilaterally. ABDOMEN: soft, nontender. EXTREMITIES: no edema. PERIPHERAL PULSES: equal. NEUROLOGIC: No gross deficits, AAO X 3 Office Procedures EKG Details: Sinus rhythm 84 beats per minute, normal axis, QTC 484 msec. [id number], Complete Assessment & Plan Assessment & Plan (1) Stable angina: Code(s): I20.8 - Other forms of angina pectoris (2) HTN (hypertension): Code(s): I10 - Essential (primary) hypertension Plan [age] gentleman is here for follow-up. He had RCA PCI in the past. He had residual circumflex and diagonal stenosis. Stress testing after RCA PCI was normal. He has not endorsed any symptoms since then. Denies chest discomfort shortness of breath. Blood pressure is mildly elevated at this stage. I have advised him to monitor his blood pressure and keep a log for 1 week. Based on that will decide whether we add any medications. 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 As he brings the 1 week blood pressure log and I will decide. Thank you for allowing me to participate in the care of your patient. Please feel free to contact me if you have any questions. Coding Level of Care Code Est Pt Level 4 (82607) Diagnoses Stable angina I20.8 HTN (hypertension) I10 CPT Codes EKG - CPT: 20093-[id number], Complete ([id number])
[2023-04-13 15:42] VITALS: BP 140/94; PULSE 84; BMI 28.7
== END 2023-04-13 16:14 | disposition home or self-care (01) ==
PROVIDERS: Visit Provider Internal Medicine Cardiovascular Disease
DX: I49.1 Atrial premature depolarization (principal); R94.31 Abnormal electrocardiogram [ECG] [EKG]
CPT/HCPCS: 93010; 99214

== ENCOUNTER → 2023-04-13 15:26 | Outpatient (BNVA) | payer OTHER, SELFPAY | PROVIDERS: Visit Provider Internal Medicine Cardiovascular Disease | DX: I20.8 Other forms of angina pectoris (principal); I10 Essential (primary) hypertension | CPT/HCPCS: 93005 ==

== ENCOUNTER → 2023-09-12 15:33 | Outpatient (BNVA) | payer OTHER, SELFPAY | PROVIDERS: Visit Provider Internal Medicine Cardiovascular Disease | DX: I20.89 Other forms of angina pectoris (principal); I10 Essential (primary) hypertension | CPT/HCPCS: 93005 ==

== ENCOUNTER 2023-09-12 15:34 | Outpatient (AMB) | payer OTHER, SELFPAY ==
[2023-09-12 15:55] VITALS: BP 134/82; PULSE 65; BMI 29.1
--- NOTE | 2023-09-12 15:55 | MHC.OFFVIS ---
Intake Vital Signs 09/12/23 15:55 Height 5 ft 7 in Weight 185 lb 10.067 oz BMI 29.1 BP 134/82 Blood Pressure Location Lt brachial Position Sitting Pulse 65 Intake Visit Reasons: Follow up Intake Note: pt its here for a f/up pt states that he its doing fine. Workers' Compensation Magistrate Required: No Accompanied by: Self / Same As Patient Allergies No Known Allergies Allergy (Verified 04/13/23 15:48) Medication List - Last Reconciled 09/12/23 by Donn Abrams MD aspirin 81 mg PO DAILY 90 days atorvastatin 80 mg PO BEDTIME clopidogrel 75 mg PO DAILY ezetimibe 10 mg PO DAILY fenofibrate nanocrystallized 145 mg PO DAILY metoprolol tartrate 25 mg PO BID nitroglycerin (Nitrostat) 0.4 mg sublingual Q5M PRN 1 day HPI HPI Comments History of Present Illness Details 53-year-old gentleman here for follow-up. He underwent right coronary artery PCI in the setting of NSTEMI. He had residual disease in LAD and left circumflex artery. He underwent stress testing which was unremarkable. He is returning now after 2 years. He continues to bike and stay active as before. No exertional chest discomfort shortness of breath. He has some bruises on his arms from skateboarding and falls. No significant bleeding otherwise. He is taking medications regularly. 04/13/2023: Is here for follow-up. He is denying any chest discomfort shortness of breath. Blood pressure is mildly elevated. He is taking medications regularly. 09/12/2023: He returns for follow-up. He has been doing well. No chest discomfort shortness of breath. Clinically stable at this stage. [facility] Medical History (Updated 02/18/22 @ 15:28 by Donn Abrams MD) HLD (hyperlipidemia) HTN (hypertension) CAD (coronary artery disease) No known health problems Surgical History S/P cardiac cath (~06/2020) Family History Father CAD (coronary artery disease) Social History Household Members: Significant Other and Children Housing: House Do you presently have visiting nurse or other home services: No Alcohol intake: current Alcohol intake frequency: a few times a week Patient Tobacco Use Status: Never used Tobacco Second Hand Smoke Exposure: No Substance Use Type: Marijuana service: No Current occupational status: employed Review of Systems Const Denies chills, Denies fatigue, Denies fever(s), Denies frequent falls, Denies weakness, Denies weight gain and Denies weight loss ENT Denies dizziness Card Denies chest pain, Denies leg edema, Denies lightheadedness, Denies palpitations, Denies dyspnea and Denies dyspnea on exertion Resp Denies cough, Denies dyspnea and Denies dyspnea on exertion GI Denies hematochezia Musc Denies abnormal gait, Denies muscle weakness, Denies numbness, Denies radiating pain into limb and Denies tingling Neuro Denies abnormal gait, Denies dizziness, Denies frequent falls, Denies numbness, Denies tingling and Denies weakness Endo Denies fatigue and Denies palpitations Physical Exam Vital Signs: Last Vital Signs Pulse 65 09/12/23 15:55 BP 134/82 09/12/23 15:55 BMI result Body Mass Index 29.1 GENERAL APPEARANCE: in no acute distress, pleasant. NECK: no carotid bruit, no jugular venous distention. SKIN: no suspicious lesions, warm and dry. HEART: no murmurs, regular rate and rhythm. LUNGS: clear to auscultation bilaterally. ABDOMEN: soft, nontender. EXTREMITIES: no edema. PERIPHERAL PULSES: equal. NEUROLOGIC: No gross deficits, AAO X 3 Office Procedures EKG Details: Sinus rhythm 65 beats per minute, normal axis, normal EKG, QTC 455 milliseconds. [id number], Complete Assessment & Plan Assessment & Plan (1) Stable angina: Code(s): I20.8 - Other forms of angina pectoris (2) HTN (hypertension): Code(s): I10 - Essential (primary) hypertension Plan 53-year-old gentleman who is here for follow-up. He had RCA PCI in the past. He had residual circumflex and diagonal stenosis. Stress testing after RCA PCI was normal. He has not endorsed any symptoms since then. Denies chest discomfort shortness of breath. On follow-up he has been doing well. We will repeat a fasting lipid panel on him. He will continue same medications for now. Blood pressure is well controlled. Thank you for allowing me to participate in the care of your patient. Please feel free to contact me if you have any questions. Orders: Orders Lipid Panel Today I20.8 - Other forms of angina pectoris Coding Level of Care Code Est Pt Level 4 (59194) Diagnoses Stable angina I20.8 HTN (hypertension) I10 CPT Codes EKG - CPT: 73482-[id number], Complete ([id number])
== END 2023-09-12 16:39 | disposition home or self-care (01) ==
PROVIDERS: Visit Provider Internal Medicine Cardiovascular Disease
DX: I20.8 Other forms of angina pectoris (principal); I10 Essential (primary) hypertension
CPT/HCPCS: 93010; 99214

== ENCOUNTER 2024-01-11 20:00 | Inpatient (IN) | payer OTHER, SELFPAY ==
--- NOTE | ~2024-01-11 | FL_ITS ---
EXAMINATION: XR FLUOROSCOPY WITH IMAGES CLINICAL INFORMATION: Right hip cannulated screw COMPARISON: Right hip 01/11/2024 TECHNIQUE: Fluoroscopy Supervised By: Dr. Craven. Fluoroscopy Time: 1.0 minutes Cumulative Dose: 32.4 mGy. DAP: 0.563 Gycm2. Images: 4. FINDINGS: 4 images demonstrate a fracture of the right femoral neck transfixed by 3 cannulated screws. Please see Dr. Craven's procedure note for full details. FL/FL guidance in OR IMPRESSION: Right femoral neck fracture transfixed by [address] Please see Dr[address] Craven's procedure note for full details.
--- NOTE | ~2024-01-11 | XR_ITS ---
EXAMINATION: XR HIP, RIGHT CLINICAL INFORMATION: Trauma COMPARISON: None available. TECHNIQUE: Two views of the right hip and one view of the pelvis. FINDINGS: There is a slightly impacted right femoral neck fracture. No other fracture seen. Mild arthritis of both hip joints. No pelvic fracture. Degenerative changes of the visualized lower lumbar spine. Soft tissues are unremarkable. XR/XR hip RT w PEL1V IMPRESSION: Right femoral neck fracture.
--- NOTE | ~2024-01-11 | CT_ITS ---
EXAMINATION: CT ABDOMEN AND PELVIS WITH CONTRAST CLINICAL INFORMATION: Reason for Exam Fell off from a skateboard on Plavix. COMPARISON: None available. TECHNIQUE: Multidetector volumetric images were obtained from the superior aspect of the liver through the pubic symphysis following administration 85 mL of Omnipaque 350 intravenous contrast. Sagittal and coronal reformatted images were obtained on the technologist's workstation. Oral contrast: No This CT examination was performed using dose optimization techniques as appropriate, variously including the following: *Automated exposure control *Adjustment of mA and/or kV according to patient size (this includes techniques or standardized protocols for targeted exams where dose is matched to indication/reason for exam; i.e. extremities or head) *Use of iterative reconstruction technique DLP: 643 mGy-cm FINDINGS: LUNG BASES: Subsegmental atelectasis versus scarring at the lung bases. Coronary artery calcifications. LIVER, GALLBLADDER, AND BILIARY TREE: The liver demonstrates hypoattenuation consistent with steatosis. No focal hepatic lesion or biliary ductal dilatation is identified. The gallbladder is unremarkable with no evidence of radiopaque gallstones, gallbladder wall thickening, or obvious pericholecystic inflammatory changes. PANCREAS: Unremarkable. SPLEEN: Unremarkable. ADRENAL GLANDS: Unremarkable. KIDNEYS AND URETERS: The kidneys are normal in size, shape, and attenuation. No hydronephrosis, hydroureter, or calculi seen. No perinephric stranding. BLADDER: Partially distended without significant wall thickening. Small calcifications noted along the urachal remnant with some surrounding thickening such as on sagittal image 70. GASTROINTESTINAL TRACT: Colonic diverticulosis is noted. The small and large bowel are otherwise unremarkable without evidence of obstruction or pericolonic inflammatory change. The appendix is unremarkable. No free fluid or free air is seen. ABDOMINAL WALL: No significant hernia is appreciated. LYMPH NODES: Normal. VASCULAR: Scattered atherosclerotic calcifications. No appreciable intra-abdominal hematoma. PELVIC VISCERA: Unremarkable. OSSEOUS STRUCTURES: Right femoral neck fracture, as noted on recent radiograph 01/11/2024. There is stranding in the subcutaneous tissues lateral to both hips, left greater than right, which could be chronic or reflect acute contusion. Multilevel degenerative changes in the spine. CT/CT abdomen pelvis w IV con IMPRESSION: 1. No acute intra-abdominal findings identified. 2. Right femoral neck fracture. Stranding in the subcutaneous tissues lateral to both hips, left greater than right, which could reflect acute contusion. 3. Small calcifications along the urachal remnant with some surrounding thickening, of uncertain clinical significance. In the absence of prior studies to assess stability, repeat exam in approximately 6 months is recommended, as malignant thickening would be difficult to entirely exclude. 4. Hepatic steatosis. 5. Coronary artery calcifications. Correlation with cardiac risk factors is recommended.
[2024-01-11 20:03] VITALS: BP 142/89; PULSE 82; RESP 17; TEMP 36.8; O2SAT 97; BMI 27.7
--- NOTE | 2024-01-11 20:06 | ED.GENADULT ---
HPI - General Adult General Chief complaint: Extremity Injury, Lower Stated complaint: fell off skateboard, R hip inj Time Seen by Provider: 01/11/24 21:05 Related Data Previous Rx's ?Medication ?Instructions ?Recorded nitroglycerin 0.4 mg sublingual 0.4 mg sublingual Q5M PRN Chest 06/30/20 tablet (Nitrostat) Pain 1 day aspirin 81 mg chewable tablet 81 mg PO DAILY 90 days #90 tabs 08/19/21 atorvastatin 80 mg tablet 80 mg PO BEDTIME #90 tabs 03/29/23 clopidogrel 75 mg tablet 75 mg PO DAILY #90 tabs 03/29/23 ezetimibe 10 mg tablet 10 mg PO DAILY #90 tabs 05/31/23 fenofibrate nanocrystallized 145 145 mg PO DAILY #90 tabs 06/01/23 mg tablet metoprolol tartrate 25 mg tablet 25 mg PO BID #180 tabs 06/07/23 Allergies Allergy/AdvReac Type Severity Reaction Status Date / Time No Known Allergies Allergy Verified 01/11/24 20:03 [facility] Past Medical History Medical History HLD (hyperlipidemia) HTN (hypertension) CAD (coronary artery disease) No known health problems Surgical History S/P cardiac cath (~06/2020) Family History Family History Father CAD (coronary artery disease) Social History Social History Household Members: Significant Other and Children Housing: House Do you presently have visiting nurse or other home services: No Alcohol intake: unknown Patient Tobacco Use Status: Never used Tobacco Smoked in Last 30 Days: No Second Hand Smoke Exposure: No Use of substances other than those prescribed or required for medical reasons: No Substance Use Type: Marijuana Advance Directives: No Advance Directives Information Provided: No Do you have a plan to hurt others: No Plan Nutrition Risks: No Nutritional Risk service: No Current occupational status: employed Physical Exam ED Vital Signs: Vital Signs - 24 hr 01/11/24 20:03 06/05/24 21:48 Temperature 98.2 F Pulse Rate 82 Respiratory Rate 17 16 Blood Pressure 142/89 H Pulse Oximetry 97 Oxygen Delivery Method Room Air BMI result Body Mass Index 27.7 Course Course Course Narrative: This is a rapid medical exam performed by Lucrecia Gold NP: Additional HPI, ROS, PE not included below will be deferred to primary provider. Patient is a 53-year-old male presenting to the ED with complaint of right hip pain after falling off his skateboard prior to arrival. States pain increases significantly when attempting to stand. Denies head strike or loss of consciousness. Patient asking if he can have water, advised to hold off until imaging obtained, GF then gave patient water. Plan: xray Medications Administered Generic Name Dose Route Start Last Admin Trade Name Freq PRN Reason Stop Dose Admin Hydromorphone HCl 0.5 mg 01/11/24 22:14 01/11/24 22:53 Hydromorphone Hcl 0.5 Mg/0.5 Ml Syringe IVPUSH 0.5 mg Q4H PRN Administration Pain, Severe (Pain Scale 7-10) Protocol Sodium Chloride 3 ml 01/12/24 00:00 01/12/24 00:22 0.9 % Sodium Chloride Flush 3 Ml Syringe IVFLUSH Not Given QSHIFT RITO Discontinued Medications Generic Name Dose Route Start Last Admin Trade Name Freq PRN Reason Stop Dose Admin Hydromorphone HCl 0.5 mg 01/11/24 21:32 01/11/24 21:48 Hydromorphone Hcl 0.5 Mg/0.5 Ml Syringe IVPUSH 01/11/24 21:33 0.5 mg ONCE ONE Administration Protocol Iohexol 85 ml 01/11/24 23:20 01/11/24 23:20 Iohexol 350 Mg/Ml 100 Ml Infus..Btl IV 01/11/24 23:21 85 ml ONCE ONE Administration Medical Decision Making Lab Data 01/11/24 21:44 01/11/24 21:44 Labs: Lab Results 01/11/24 Range/Units 21:44 WBC 12.7 H (4.8-10.8) X10*3/uL RBC 4.42 L (4.60-5.80) X10*6/uL Hgb 13.6 L (14.0-18.0) g/dl Hct 38.3 L (42.0-52.0) % MCV 86.7 (80.0-98.0) fL MCH 30.8 (27.0-33.0) pg MCHC 35.5 (31.0-36.0) g/dl RDW 12.4 (11.0-16.0) % Plt Count 233 (160-400) X10*3/uL MPV 9.1 L (9.4-12.4) fL Immature Gran % (Auto) 0.5 H (0.0-0.4) % Neut % (Auto) 86.5 H (45-73) % Lymph % (Auto) 7.9 L (20-40) % [place] % (Auto) 4.9 (2-11) % Eos % (Auto) 0.0 (0-4) % Baso % (Auto) 0.2 (0-2) % Lymph # (Auto) 1.0 L (1.2-4.9) X10*3/uL [place] # (Auto) 0.6 (0.1-1.2) X10*3/uL Eos # (Auto) 0.0 (0.0-0.4) X10*3/uL Baso # (Auto) 0.0 (0.0-0.2) X10*3/uL Abs Immat Gran (auto) 0.06 H (0.00-0.03) X10*3/uL Absolute Neuts (auto) 11.0 H (2.0-8.3) x10*3/uL Absolute Nucleated RBC 0.000 (0.0-0.012) X10*3/uL Nucleated RBC % (auto) 0.0 (0.0-0.2) /100WBC Sodium 138 (135-145) mmol/L Potassium 3.7 (3.3-5.1) mmol/L Chloride 104 (96-108) mmol/L Carbon Dioxide 22 (22-29) mmol/L Anion Gap 16 (12-20) BUN 21 H (9-16) mg/dL Creatinine 0.88 (0.5-1.4) mg/dL Estim Creat Clear Calc 97.4 Estimated GFR > 60 Random Glucose 162 H (60-115) mg/dL Calcium 9.7 (8.4-10.2) mg/dL Discharge Plan Discharge Clinical Impression: Fracture of hip Patient Disposition: Admitted As Inpatient
--- NOTE | 2024-01-11 21:28 | ED_ITS ---
HPI - Extremity Injury (Lower) General Chief Complaint: Extremity Injury, Lower Stated Complaint: fell off skateboard, R hip inj Time Seen by Provider: 01/11/24 21:05 History of Present Illness HPI Narrative: Patient is a 53-year-old male was sent in for pain to the right hip right lower back area after falling off a skateboard at approximately 17:00. Patient adamantly denies any head injury. There has no neck injury. Denies any chest pain any shortness of breath. Has pain on movement of the right hip area. Patient is on Plavix. History of CAD status post stent. Patient from home. Unable to ambulate came to the ED. Related Data Previous Rx's ?Medication ?Instructions ?Recorded nitroglycerin 0.4 mg sublingual 0.4 mg sublingual Q5M PRN Chest 06/30/20 tablet (Nitrostat) Pain 1 day aspirin 81 mg chewable tablet 81 mg PO DAILY 90 days #90 tabs 08/19/21 atorvastatin 80 mg tablet 80 mg PO BEDTIME #90 tabs 03/29/23 clopidogrel 75 mg tablet 75 mg PO DAILY #90 tabs 03/29/23 ezetimibe 10 mg tablet 10 mg PO DAILY #90 tabs 05/31/23 fenofibrate nanocrystallized 145 145 mg PO DAILY #90 tabs 06/01/23 mg tablet metoprolol tartrate 25 mg tablet 25 mg PO BID #180 tabs 06/07/23 Allergies Allergy/AdvReac Type Severity Reaction Status Date / Time No Known Allergies Allergy Verified 01/11/24 20:03 Review of Systems 2 Review of Systems: Positive pain to the right hip area limited range of motion secondary to pain Yes all other systems are reviewed and are negative [facility] Past Medical History Attestation statement: The following information was validated with the patient. Medical History HLD (hyperlipidemia) HTN (hypertension) CAD (coronary artery disease) No known health problems Surgical History S/P cardiac cath (~06/2020) Family History Family History Father CAD (coronary artery disease) Social History Social History Household Members: Significant Other and Children Housing: House Do you presently have visiting nurse or other home services: No Alcohol intake: unknown Patient Tobacco Use Status: Never used Tobacco Smoked in Last 30 Days: No Second Hand Smoke Exposure: No Use of substances other than those prescribed or required for medical reasons: No Substance Use Type: Marijuana Advance Directives: No Advance Directives Information Provided: No Do you have a plan to hurt others: No Plan Nutrition Risks: No Nutritional Risk service: No Current occupational status: employed Physical Exam 2 Vital Signs: Vital Signs: Last Vital Signs Temp 98.3 F 01/11/24 22:14 Pulse 81 01/11/24 22:14 Resp 16 01/11/24 22:53 BP 142/86 H 01/11/24 22:14 Pulse Ox 94 01/11/24 22:14 O2 Del Method Room Air 01/11/24 22:14 BMI result Body Mass Index 27.7 Appearance: Alert. Oriented X3. No acute distress. Eyes: Pupils equal, round and reactive to light. ENT: Pharynx normal. Neck: Normal inspection. Neck supple. No lymph nodes noted. No crepitus CVS: Normal heart rate and rhythm. Pulses normal. Normal S1 and S2 Respiratory: No respiratory distress. Breath sounds normal. No Wheezing. No rales Abdomen: Soft and nontender. No rigidity. No distention. good BS x4 Skin: Skin warm and dry. Normal skin color. Normal skin turgor. Extremities: No lower extremity edema. Neurovascular intact to all extremities. No Lacerations. No Rash Neuro: Oriented X 3. No motor deficit. No sensory deficit. Moving all extermities. No slurred speech Medications Administered Generic Name Dose Route Start Last Admin Trade Name Freq PRN Reason Stop Dose Admin Hydromorphone HCl 0.5 mg 01/11/24 22:14 01/11/24 22:53 Hydromorphone Hcl 0.5 Mg/0.5 Ml Syringe IVPUSH 0.5 mg Q4H PRN Administration Pain, Severe (Pain Scale 7-10) Protocol Sodium Chloride 3 ml 01/12/24 00:00 01/12/24 00:22 0.9 % Sodium Chloride Flush 3 Ml Syringe IVFLUSH Not Given QSHIFT RITO Discontinued Medications Generic Name Dose Route Start Last Admin Trade Name Freq PRN Reason Stop Dose Admin Hydromorphone HCl 0.5 mg 01/11/24 21:32 01/11/24 21:48 Hydromorphone Hcl 0.5 Mg/0.5 Ml Syringe IVPUSH 01/11/24 21:33 0.5 mg ONCE ONE Administration Protocol Iohexol 85 ml 01/11/24 23:20 01/11/24 23:20 Iohexol 350 Mg/Ml 100 Ml Infus..Btl IV 01/11/24 23:21 85 ml ONCE ONE Administration Medical Decision Making Medical Decision Making [facility] Narrative: Patient fell at a skateboard park while doing tricks. The x-ray by my interpretation showed a femoral neck fracture. I reviewed radiology's reading. A CT scan of the abdomen pelvis was done. Patient will require admission for further evaluation. I reviewed patient's CT scan of the abdomen pelvis except for the femoral neck fracture otherwise there is no other intra-abdominal pathology. Patient well- appearing. Will admit for further evaluation. I reviewed radiology's reading of the CT scan. Currently in stable condition. Differential Diagnosis Differential Diagnoses: The differential diagnosis associated with the presentation includes Fracture hip, retroperitoneal bleeding Admission/Observation Consideration of admission/observation: Escalation of care including admission/observation considered Consult Healthcare Provider Management of the patient was discussed with: Hospitalist and Tester Operator Helper (Orthopedics) Lab Data [facility] Lab Attestation statement: I reviewed the patient's lab results. 01/11/24 21:44 01/11/24 21:44 Labs: Lab Results 01/11/24 Range/Units 21:44 WBC 12.7 H (4.8-10.8) X10*3/uL RBC 4.42 L (4.60-5.80) X10*6/uL Hgb 13.6 L (14.0-18.0) g/dl Hct 38.3 L (42.0-52.0) % MCV 86.7 (80.0-98.0) fL MCH 30.8 (27.0-33.0) pg MCHC 35.5 (31.0-36.0) g/dl RDW 12.4 (11.0-16.0) % Plt Count 233 (160-400) X10*3/uL MPV 9.1 L (9.4-12.4) fL Immature Gran % (Auto) 0.5 H (0.0-0.4) % Neut % (Auto) 86.5 H (45-73) % Lymph % (Auto) 7.9 L (20-40) % [place] % (Auto) 4.9 (2-11) % Eos % (Auto) 0.0 (0-4) % Baso % (Auto) 0.2 (0-2) % Lymph # (Auto) 1.0 L (1.2-4.9) X10*3/uL [place] # (Auto) 0.6 (0.1-1.2) X10*3/uL Eos # (Auto) 0.0 (0.0-0.4) X10*3/uL Baso # (Auto) 0.0 (0.0-0.2) X10*3/uL Abs Immat Gran (auto) 0.06 H (0.00-0.03) X10*3/uL Absolute Neuts (auto) 11.0 H (2.0-8.3) x10*3/uL Absolute Nucleated RBC 0.000 (0.0-0.012) X10*3/uL Nucleated RBC % (auto) 0.0 (0.0-0.2) /100WBC Sodium 138 (135-145) mmol/L Potassium 3.7 (3.3-5.1) mmol/L Chloride 104 (96-108) mmol/L Carbon Dioxide 22 (22-29) mmol/L Anion Gap 16 (12-20) BUN 21 H (9-16) mg/dL Creatinine 0.88 (0.5-1.4) mg/dL Estim Creat Clear Calc 97.4 Estimated GFR > 60 Random Glucose 162 H (60-115) mg/dL Calcium 9.7 (8.4-10.2) mg/dL Independent Interpretation I performed an independent interpretation of an: Plain X-Ray (Positive left femoral neck fracture) Radiology Impression Discussion of test interpretation with radiology: I have reviewed the radiologist's reading. Independent Historian Clinical information obtained from an independent historian. History obtained from or confirmed by: Friend Chronic Conditions History of coronary artery disease, hypertension. History of stents on Plavix Discharge Plan Discharge Clinical Impression: Fracture of hip Patient Disposition: Admitted As Inpatient
[2024-01-11 21:47] LABS: MANUAL DIFF FLAG NO
[2024-01-11 21:48] VITALS: RESP 16
[2024-01-11 21:48] LABS: Basophils Percent Auto 0.2 % (0-2); Hematocrit 38.3 % (42.0-52.0); Hemoglobin 13.6 g/dl (14.0-18.0); Imm Gran Abs Auto 0.06 X10*3/uL (0.00-0.03); Imm Gran Pct Auto 0.5 % (0.0-0.4); Lymphocytes Percent Auto 7.9 % (20-40); Mean Corpuscular HGB Conc 35.5 g/dl (31.0-36.0); Mean Corpuscular Hemoglobin 30.8 pg (27.0-33.0); Mean Corpuscular Volume 86.7 fL (80.0-98.0); Mean Platelet Volume 9.1 fL (9.4-12.4); Monocytes Absolute Auto 0.6 X10*3/uL (0.1-1.2); Monocytes Percent Auto 4.9 % (2-11); Neutrophils Percent Auto 86.5 % (45-73); Platelet Count 233 X10*3/uL (160-400); Red Blood Count 4.42 X10*6/uL (4.60-5.80); Red Cell Distribution Width 12.4 % (11.0-16.0); White Blood Count 12.7 X10*3/uL (4.8-10.8)
[2024-01-11] MEDS: HYDROmorphone HCl 0.5 MG/0.5 ML SYRINGE IVPUSH ×2 (21:48→22:53)
[2024-01-11 22:11] LABS: Anion Gap 16 (12-20); Blood Urea Nitrogen 21 mg/dL (9-16); Calcium 9.7 mg/dL (8.4-10.2); Carbon Dioxide 22 mmol/L (22-29); Chloride 104 mmol/L (96-108); Creatinine Clr Calc Pharmacy 97.4; Estimated Glomerular Filt Rate > 60; Glucose Random 162 mg/dL (60-115); Potassium 3.7 mmol/L (3.3-5.1); Sodium 138 mmol/L (135-145)
[2024-01-11 22:14] VITALS: BP 142/86; PULSE 81; TEMP 36.8; O2SAT 94
--- NOTE | 2024-01-11 22:15 | P.HPHOSP_ITS ---
History of Present Illness Date of Service: 01/11/24 Chief Complaint: Fall This is a 53-year-old male with pertinent history of CAD status post stent, hypertension, mixed hyperlipidemia who presents to the emergency department for evaluation after a fall. Patient states he slipped while skateboarding and fell on his right hip. Did not lose consciousness before or after the fall. Did not hit his head. Chest pain or palpitations prior to the fall. No rhythmic jerking movement of extremities. Patient has difficulty moving right lower extremity since the fall. No fever, chills, shortness of breath, nausea, vomiting, abdominal pain, changes in urinary bowel habits. He is on aspirin and Plavix. In the emergency department, imaging with night femoral neck fracture Review of Systems 2 Constitutional: Constitutional: Reports no additional constitutional complaints Cardiovascular: Cardiovascular: Reports no additional cardiovascular complaints Respiratory: Respiratory: Reports no additional respiratory complaints Gastrointestinal: Gastrointestinal: Reports no additional gastrointestinal complaints Musculoskeletal: Musculoskeletal: Reports arthralgias and Reports limited range of motion [facility] Medical History HLD (hyperlipidemia) HTN (hypertension) CAD (coronary artery disease) No known health problems Family History Father CAD (coronary artery disease) Surgical History S/P cardiac cath (~06/2020) Social History Household Members: Significant Other and Children Housing: House Do you presently have visiting nurse or other home services: No Alcohol intake: unknown Patient Tobacco Use Status: Never used Tobacco Smoked in Last 30 Days: No Second Hand Smoke Exposure: No Use of substances other than those prescribed or required for medical reasons: No Substance Use Type: Marijuana Advance Directives: No Advance Directives Information Provided: No Do you have a plan to hurt others: No Plan service: No Current occupational status: employed Meds Allergies Allergy/AdvReac Type Severity Reaction Status Date / Time No Known Allergies Allergy Verified 01/11/24 20:03 Physical Exam 2 Vital Signs and Narrative: Vital Signs: Last Vital Signs Temp 98.2 F 01/11/24 20:03 Pulse 82 01/11/24 20:03 Resp 16 01/11/24 21:48 BP 142/89 H 01/11/24 20:03 Pulse Ox 97 01/11/24 20:03 O2 Del Method Room Air 01/11/24 20:03 BMI result Body Mass Index 27.7 Middle-aged male lying in bed in no distress Neck supple, no JVD Regular rate and rhythm, S1-S2 heard Regular breath sounds bilaterally, no wheezing or crackles appreciated Abdomen soft nontender, no guarding, no rigidity Patient is awake, alert and oriented to self, place, time and person ; no focal motor deficit Musculoskeletal: Limited right lower extremity movement due to pain Psych: Normal mood No pedal edema Results Labs 01/11/24 21:44 01/11/24 21:44 Labs: Laboratory Results - last 24 hr 01/11/24 21:44 MCV 86.7 MCH 30.8 MCHC 35.5 RDW 12.4 Plt Count 233 MPV 9.1 L Immature Gran % (Auto) 0.5 H Neut % (Auto) 86.5 H Lymph % (Auto) 7.9 L [place] % (Auto) 4.9 Eos % (Auto) 0.0 Baso % (Auto) 0.2 Lymph # (Auto) 1.0 L [place] # (Auto) 0.6 Eos # (Auto) 0.0 Baso # (Auto) 0.0 Abs Immat Gran (auto) 0.06 H Absolute Neuts (auto) 11.0 H Absolute Nucleated RBC 0.000 Nucleated RBC % (auto) 0.0 Anion Gap 16 Estim Creat Clear Calc 97.4 Estimated GFR > 60 Random Glucose 162 H Calcium 9.7 Imaging Radiologist's Impressions: Impressions Hip/Pelvis X-Ray 01/11/24 20:30 IMPRESSION: Right femoral neck fracture. Assessment and Plan (1) Fracture of femoral neck, right: Status: Acute Plan This is a 53-year-old male with pertinent history of CAD status post stent, hypertension, mixed hyperlipidemia who presents to the emergency department for evaluation after a fall. #. Right femoral neck fracture due to mechanical fall: Will admit patient with IV opiates p.r.n. for analgesia. Consulting orthopedic surgery, appreciate assistance. Hold antiplatelet agents for possible surgery #. Preoperative risk: RCRI score 1. Will obtain BNP #. CAD status post stent: Holding antiplatelet agents as above. On high- intensity statin. On beta-jovita #. Mixed hyperlipidemia: On high-intensity statin and Zetia #. Reactive leukocytosis: No concern for bacterial infection Med rec pending DVT prophylaxis: Mechanical Full code Admit as inpatient and will require two night minimum hospital stay for treatment of right femoral neck fracture (as above), which is not possible in a lesser acute setting. Specialist consult pending Quality Stroke Does the patient have a stroke diagnosis?: No VTE Prior VTE?: No VTE Risk Level:: Medical - moderate - high VTE Device Contraindication: N/A - Device Ordered VTE Drug Contraindication: Treatment Not Indicated
[2024-01-11 22:53] VITALS: RESP 16
[2024-01-11] MEDS: iohexoL 350 MG/ML 100 ML INFUS..BTL 85 ML IV (23:20)
--- NOTE | 2024-01-12 00:06 | PC.NURSE ---
Patient is alert and oriented x3, VSS. Patient c/o 02/14 pain in right hip s/p fall, medicated per MAR with Dilaudid 0.5 mg IV push via 20 G IV line with minimal improvement in pain. Patient is aware of NPO after mid night. Call alvarez in reach, plan of care ongoing.
[2024-01-12] MEDS: HYDROmorphone HCl 0.5 MG/0.5 ML SYRINGE IVPUSH ×5 (04:16→21:04)
--- NOTE | 2024-01-12 05:36 | PC.NURSE ---
Assumed care of pt at 0530. PT appears to be sleeping. respirations even and unlabored. safety precautions in place. call alvarez within reach. plan of care ongoing
[2024-01-12 06:25] LABS: MANUAL DIFF FLAG NO
[2024-01-12 06:31] LABS: Basophils Percent Auto 0.2 % (0-2); Eosinophils Percent Auto 0.1 % (0-4); Hematocrit 38.8 % (42.0-52.0); Hemoglobin 13.3 g/dl (14.0-18.0); Imm Gran Abs Auto 0.05 X10*3/uL (0.00-0.03); Imm Gran Pct Auto 0.5 % (0.0-0.4); Lymphocytes Absolute Auto 1.5 X10*3/uL (1.2-4.9); Lymphocytes Percent Auto 14.5 % (20-40); Mean Corpuscular HGB Conc 34.3 g/dl (31.0-36.0); Mean Corpuscular Hemoglobin 30.4 pg (27.0-33.0); Mean Corpuscular Volume 88.6 fL (80.0-98.0); Mean Platelet Volume 9.5 fL (9.4-12.4); Monocytes Absolute Auto 0.8 X10*3/uL (0.1-1.2); Monocytes Percent Auto 7.4 % (2-11); Neutrophils Absolute Auto 8.1 x10*3/uL (2.0-8.3); Neutrophils Percent Auto 77.3 % (45-73); Platelet Count 226 X10*3/uL (160-400); Red Blood Count 4.38 X10*6/uL (4.60-5.80); Red Cell Distribution Width 12.6 % (11.0-16.0); White Blood Count 10.4 X10*3/uL (4.8-10.8)
[2024-01-12 06:33] VITALS: BP 145/75; PULSE 77; RESP 17; TEMP 36.8; O2SAT 96
--- NOTE | 2024-01-12 06:39 | PM.CNOR ---
History of Present Illness HPI Consult date: 01/12/24 <Batsheva Levy PA-C - Last Filed: 01/12/24 06:40> Chief complaint: Fall <Batsheva Levy PA-C - Last Filed: 01/12/24 06:40> Narrative: 53 yo male admitted to the medical service for right femoral neck fracture. he states he was skateboarding when he fell, landing on the right side. <Batsheva Levy PA-C - Last Filed: 01/12/24 06:40> 53 yo male admitted to the medical service for right femoral neck fracture. he states he was skateboarding when he fell, landing on the right side. <Karlene Yao PA-C - Last Filed: 01/12/24 08:53> Review of Systems Review of Systems: Yes all other systems are reviewed and are negative <Karlene Yao PA-C - Last Filed: 01/12/24 08:53> [facility] Past Medical History Medical History: Medical History HLD (hyperlipidemia) HTN (hypertension) CAD (coronary artery disease) No known health problems <Batsheva Levy PA-C Last Filed: 01/12/24 06:40> Family History Family History: Family History Father CAD (coronary artery disease) <Batsheva Levy PA-C - Last Filed: 01/12/24 06:40> Surgical History Surgical History: Surgical History S/P cardiac cath (~06/2020) <SHARYN Castillo Last Filed: 01/12/24 06:40> Social History Social History: Social History Household Members: Significant Other and Children Housing: House Do you presently have visiting nurse or other home services: No Alcohol intake: unknown Patient Tobacco Use Status: Never used Tobacco Smoked in Last 30 Days: No Second Hand Smoke Exposure: No Use of substances other than those prescribed or required for medical reasons: No Substance Use Type: Marijuana Advance Directives: No Advance Directives Information Provided: No Do you have a plan to hurt others: No Plan Nutrition Risks: No Nutritional Risk service: No Current occupational status: employed <SHARYN Castillo Last Filed: 01/12/24 06:40> Meds Allergies/Adverse reactions: Allergies Allergy/AdvReac Type Severity Reaction Status Date / Time No Known Allergies Allergy Verified 01/11/24 20:03 <Batsheva eLvy PA-C - Last Filed: 01/12/24 06:40> Active Medications: Current Medications Acetaminophen (Acetaminophen 325 Mg Tablet) 650 mg PO Q6H PRN PRN Reason: Pain, Mild (Pain Scale 1-3) Hydromorphone HCl (Hydromorphone Hcl 0.5 Mg/0.5 Ml Syringe) 0.5 mg IVPUSH Q4H PRN; Protocol PRN Reason: Pain, Severe (Pain Scale 7-10) Last Admin: 01/12/24 04:16 Dose: 0.5 mg Melatonin (Melatonin 3 Mg Tablet) 6 mg PO BEDTIME PRN PRN Reason: Insomnia Ondansetron HCl (Ondansetron Hcl 4 Mg/2 Ml Vial) 4 mg IVPUSH Q8H PRN PRN Reason: Nausea and Vomiting Sodium Chloride (0.9 % Sodium Chloride Flush 3 Ml Syringe) 3 ml IVFLUSH QSHIFT [facility] Last Admin: 01/12/24 00:22 Dose: Not Given <SHARYN Castillo Last Filed: 01/12/24 06:40> Physical Exam Vital Signs: Vital Signs: Last Vital Signs Temp 98.3 F 01/12/24 06:33 Pulse 77 01/12/24 06:33 Resp 17 01/12/24 06:33 BP 145/75 H 01/12/24 06:33 Pulse Ox 96 01/12/24 06:33 O2 Del Method Room Air 01/12/24 06:33 BMI result Body Mass Index 27.7 <SHARYN Castillo Last Filed: 01/12/24 06:40> Extrem: Other: RLE shortened and externally rotated. NVI <Karlene Yao PA-C - Last Filed: 01/12/24 08:53> Results Labs Result Diagrams: 01/12/24 06:09 01/12/24 06:09 <SHARYN Castillo Last Filed: 01/12/24 06:40> Labs: Abnormal lab results 01/11/24 01/12/24 Range/Units 21:44 06:09 WBC 12.7 H (4.8-10.8) X10*3/uL RBC 4.42 L 4.38 L (4.60-5.80) X10*6/uL Hgb 13.6 L 13.3 L (14.0-18.0) g/dl Hct 38.3 L 38.8 L (42.0-52.0) % MPV 9.1 L (9.4-12.4) fL Immature Gran % (Auto) 0.5 H 0.5 H (0.0-0.4) % Neut % (Auto) 86.5 H 77.3 H (45-73) % Lymph % (Auto) 7.9 L 14.5 L (20-40) % Lymph # (Auto) 1.0 L (1.2-4.9) X10*3/uL Abs Immat Gran (auto) 0.06 H 0.05 H (0.00-0.03) X10*3/uL Absolute Neuts (auto) 11.0 H (2.0-8.3) x10*3/uL BUN 21 H (9-16) mg/dL Random Glucose 162 H (60-115) mg/dL H & H 01/11/24 01/12/24 Range/Units 21:44 06:09 Hgb 13.6 L 13.3 L (14.0-18.0) g/dl Hct 38.3 L 38.8 L (42.0-52.0) % All other labs normal. <SHARYN Castillo Last Filed: 01/12/24 06:40> Assessment and Plan (1) Fracture of hip: Status: Acute <SHARYN Castillo Last Filed: 01/12/24 06:40> (2) Fracture of femoral neck, right: Status: Acute <Ta-SHARYN Hernandez Last Filed: 01/12/24 06:40> (3) CAD (coronary artery disease): Status: Acute <SethJoshuaTina Levy PA-C - Last Filed: 01/12/24 06:40> (4) S/P cardiac cath: Status: Acute <SethJoshuaTina Levy PA-C - Last Filed: 01/12/24 06:40> I discussed the case with ( ) and explained the extent of the injury to the patient and options available which include surgical intervention. I explained the procedure in detail along with the length of recovery and rehab course. I explained the risk, benefits and alternatives. Risk including, but not limited to infection, blood clots, bleeding, non union or malunion and nerve/tissue damage to surrounding areas. I answered all their questions and with their understanding they have consented to move forward with Operative Fixation of ( ) . The patient will be T&S, med clearance obtained and NPO after midnight. <Batsheva Levy PA-C - Last Filed: 01/12/24 06:40> I discussed the case with Dr. Craven and explained the extent of the injury to the patient and options available which include surgical intervention. I explained the procedure in detail along with the length of recovery and rehab course. I explained the risk, benefits and alternatives. Risk including, but not limited to infection, blood clots, bleeding, non union or malunion and nerve/tissue damage to surrounding areas. I answered all their questions and with their understanding they have consented to move forward with Operative Fixation of the right hip. The patient will be T&S, hold Plavix, med clearance obtained and NPO after midnight. <SHARYN Truong Last Filed: 01/12/24 08:53> Procedures Date of Service Date of Service: 01/12/24 <SHARYN Castillo Last Filed: 01/12/24 06:40> 01/12/24 <SHARYN Truong Last Filed: 01/12/24 08:53>
[2024-01-12 06:45] LABS: Anion Gap 14 (12-20); Blood Urea Nitrogen 16 mg/dL (9-16); Calcium 9.4 mg/dL (8.4-10.2); Carbon Dioxide 24 mmol/L (22-29); Chloride 103 mmol/L (96-108); Creatinine Clr Calc Pharmacy 112.8; Estimated Glomerular Filt Rate > 60; Glucose Random 134 mg/dL (60-115); Potassium 3.9 mmol/L (3.3-5.1); Sodium 137 mmol/L (135-145)
[2024-01-12 06:51] LABS: B Type Natriuretic Peptide 26 pg/mL (<100)
[2024-01-12] MEDS: 0.9 % Sodium Chloride Flush 3 ML SYRINGE IVFLUSH ×3 (07:47→20:44)
[2024-01-12 08:18] VITALS: BP 145/67; PULSE 67; RESP 14; TEMP 36.7; O2SAT 96
--- NOTE | 2024-01-12 09:37 | PHA.MEDREC ---
Addendum entered by Phyllis Nichols RPh 01/12/24 09:50: reviewed by [facility] Original Note: Pharmacy Consult ? Medication Reconciliation Pharmacy has completed the medication reconciliation.
--- NOTE | 2024-01-12 09:44 | MHC.CM.PN ---
CM met with Patient at bedside in ED over bed 2. 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 Patient will benefit from a PT Eval to assist with disposition. Patient has no PCP (Pamphlet to be provided)and therefor is not eligible for vna and he would not allow SNF/STR referral to be made. Lets see how I feel after surgery. CM will follow.
[2024-01-12] MEDS: Metoprolol Tartrate 25 MG TABLET PO ×2 (10:38→20:43)
[2024-01-12 11:51] VITALS: RESP 16
--- NOTE | 2024-01-12 15:04 | HO.PM.IMPN ---
Subjective Subjective Date of Service: 01/12/24 Interval History: c/o hip pain no exercise limitation by angina- bikes + skateboards no chest pain or dyspnea Review of Systems Review of Systems: Yes all other systems are reviewed and are negative Physical Exam Vital Signs: Vital Signs: Last Vital Signs Temp 98.1 F 01/12/24 08:18 Pulse 67 01/12/24 08:18 Resp 16 01/12/24 11:51 BP 145/67 H 01/12/24 08:18 Pulse Ox 96 01/12/24 08:18 O2 Del Method Room Air 01/12/24 08:18 BMI result Body Mass Index 27.7 Gen: in no acute distress HEENT: sclera anicteric, moist mucus membranes Neck: supple Lungs: clear to auscultation bilaterally Heart: regular rate and rhythm, no murmurs Abd: soft, non-tender, non-distended Ext: no edema, RLE shortened/rotated externally Skin: warm/well-perfused Neuro: alert and oriented x3, no focal findings Psych: appropriate affect Objective Data Active Medications Acetaminophen (Acetaminophen 325 Mg Tablet) 650 mg PO Q6H PRN PRN Reason: Pain, Mild (Pain Scale 1-3) Atorvastatin Calcium (Atorvastatin Calcium 80 Mg Tablet) 80 mg PO BEDTIME RITO Fenofibrate (Fenofibrate 160 Mg Tablet) 160 mg PO DAILY RITO Hydromorphone HCl (Hydromorphone Hcl 0.5 Mg/0.5 Ml Syringe) 0.5 mg IVPUSH Q4H PRN; Protocol PRN Reason: Pain, Severe (Pain Scale 7-10) Last Admin: 01/12/24 11:51 Dose: 0.5 mg Documented By: ALEX Cefazolin Sodium/Dextrose (Ancef) 2 gm in 50 mls @ 100 mls/hr IV PREOP ONE Stop: 01/13/24 09:15 Melatonin (Melatonin 3 Mg Tablet) 6 mg PO BEDTIME PRN PRN Reason: Insomnia Metoprolol Tartrate (Metoprolol Tartrate 25 Mg Tablet) 25 mg PO BID [facility]; Protocol Last Admin: 01/12/24 10:38 Dose: 25 mg Documented By: ALEX Ondansetron HCl (Ondansetron Hcl 4 Mg/2 Ml Vial) 4 mg IVPUSH Q8H PRN PRN Reason: Nausea and Vomiting Sodium Chloride (0.9 % Sodium Chloride Flush 3 Ml Syringe) 3 ml IVFLUSH QSHIFT [facility] Last Admin: 01/12/24 07:47 Dose: 3 ml Documented By: SCARLET Labs 01/12/24 06:09 01/12/24 06:09 Labs: Laboratory Results - last 24 hr 01/11/24 01/12/24 21:44 06:09 MCV 86.7 88.6 MCH 30.8 30.4 MCHC 35.5 34.3 RDW 12.4 12.6 Plt Count 233 226 MPV 9.1 L 9.5 Immature Gran % (Auto) 0.5 H 0.5 H Neut % (Auto) 86.5 H 77.3 H Lymph % (Auto) 7.9 L 14.5 L [place] % (Auto) 4.9 7.4 Eos % (Auto) 0.0 0.1 Baso % (Auto) 0.2 0.2 Lymph # (Auto) 1.0 L 1.5 [place] # (Auto) 0.6 0.8 Eos # (Auto) 0.0 0.0 Baso # (Auto) 0.0 0.0 Abs Immat Gran (auto) 0.06 H 0.05 H Absolute Neuts (auto) 11.0 H 8.1 Absolute Nucleated RBC 0.000 0.000 Nucleated RBC % (auto) 0.0 0.0 Anion Gap 16 14 Estim Creat Clear Calc 97.4 112.8 Estimated GFR > 60 > 60 Random Glucose 162 H 134 H Calcium 9.7 9.4 B-Natriuretic Peptide 26 Assessment and Plan (1) Fracture of femoral neck, right: Status: Acute Plan d2 53yo M with CAD s/p RCA PCI, HTN, HLD presenting with hip pain after falling while skateboarding, found to have R femoral neck fx R femoral neck fx - NPO p MN for operative fixation in AM, Ortho consulted CAD - s/p stent of RCA; residual disease in LAD + LCX, stress testing unremarkable per Cardiology note Sep 2023, no exertional angina - holding DAPT for operative fixation; continue metoprolol tartrate - RCRI class II [for CAD]; no further preoperative testing indicated HLD - continue atorvastatin + ezetimibie + fenofibrate HTN - continue metoprolol tartrate VTE ppx - SCDs dispo - TBD In my clinical judgment, the patient requires continued inpatient hospitalization for the following reasons: operative fixation Total time managing care of this patient today: 35 minutes. Quality Stroke Does the patient have a stroke diagnosis?: No VTE Prior VTE?: No VTE Risk Level:: Medical - moderate - high VTE Device Contraindication: N/A - Device Ordered VTE Drug Contraindication: Treatment Not Indicated
[2024-01-12 15:58] VITALS: PULSE 74; RESP 18; TEMP 37.3; O2SAT 96
[2024-01-12 20:28] VITALS: BP 159/86; PULSE 88; RESP 18; TEMP 36.6; O2SAT 93
[2024-01-12 20:43] VITALS: BP 159/86; PULSE 88
[2024-01-12] MEDS: Atorvastatin Calcium 80 MG TABLET PO (20:43)
[2024-01-12 20:47] VITALS: BMI 29.9
[2024-01-12] MEDS: Melatonin 3 MG TABLET 6 MG PO (23:57)
[2024-01-13] VITALS (12 sets, daily range): BP systolic 139–162; BP diastolic 70–90; PULSE 58–93; RESP 16–18; TEMP 36.3–37.6; O2SAT 92–100
[2024-01-13] MEDS: HYDROmorphone HCl 0.5 MG/0.5 ML SYRINGE IVPUSH ×5 (01:04→21:56)
--- NOTE | 2024-01-13 04:45 | PC.NURSE ---
pt c/o pain beyond 10/10 pain. I can't wait until 0500 notified and approved to give dilaudid 0.5 mg early. so given by this nurse after that pt fell asleep. will cont. monitor
[2024-01-13] MEDS: Metoprolol Tartrate 25 MG TABLET PO ×2 (07:52→20:22)
[2024-01-13] MEDS: 0.9 % Sodium Chloride Flush 3 ML SYRINGE IVFLUSH ×3 (07:53→20:23)
[2024-01-13] MEDS: Lactated Ringers 1,000 ML 50 ML IVCONT (09:27)
--- NOTE | 2024-01-13 10:40 | HO.ANESPROP2 ---
HPI - Anesthesia Eval Consult details Narrative: for hip hemiarthroplasty PMFSH Active Problems Active Problems: All Active Problems Fracture of hip (Acute) Fracture of femoral neck, right (Acute) Stable angina (Acute) HLD (hyperlipidemia) (Acute) HTN (hypertension) (Acute) CAD (coronary artery disease) (Acute) S/P cardiac cath (Acute ~06/2020) Leukocytosis (Acute) Left foot pain (Acute) Acute non-ST elevation myocardial infarction (NSTEMI) (Acute) Past Medical History Medical History HLD (hyperlipidemia) HTN (hypertension) CAD (coronary artery disease) No known health problems Family History Family History Father CAD (coronary artery disease) Family history of problems with anesthesia: No Surgical History Surgical History S/P cardiac cath (~06/2020) History of Problems with Anesthesia: No Social History Social History Household Members: Family Household Members Other:: 2 Housing: House Do you presently have visiting nurse or other home services: No Alcohol intake: unknown Patient Tobacco Use Status: Never used Tobacco e-Cigarette/Vaping Use: Never Used Second Hand Smoke Exposure: No Substance Use Type: Marijuana service: No Current occupational status: employed Meds Allergies Allergy/AdvReac Type Severity Reaction Status Date / Time No Known Allergies Allergy Verified 01/11/24 20:03 Active Medications: Current Medications Acetaminophen (Acetaminophen 325 Mg Tablet) 650 mg PO Q6H PRN PRN Reason: Pain, Mild (Pain Scale 1-3) Atorvastatin Calcium (Atorvastatin Calcium 80 Mg Tablet) 80 mg PO BEDTIME RITO Last Admin: 01/12/24 20:43 Dose: 80 mg Fenofibrate (Fenofibrate 160 Mg Tablet) 160 mg PO DAILY RITO Last Admin: 01/13/24 07:51 Dose: Not Given Hydromorphone HCl (Hydromorphone Hcl 0.5 Mg/0.5 Ml Syringe) 0.5 mg IVPUSH Q4H PRN; Protocol PRN Reason: Pain, Severe (Pain Scale 7-10) Last Admin: 01/13/24 07:54 Dose: 0.5 mg Lactated Ringer's (Lr) 1,000 mls @ 50 mls/hr IVCONT .Q20H [facility] Last Admin: 01/13/24 09:27 Dose: 50 mls/hr Melatonin (Melatonin 3 Mg Tablet) 6 mg PO BEDTIME PRN PRN Reason: Insomnia Last Admin: 01/12/24 23:57 Dose: 6 mg Metoprolol Tartrate (Metoprolol Tartrate 25 Mg Tablet) 25 mg PO BID [facility]; Protocol Last Admin: 01/13/24 07:52 Dose: 25 mg Ondansetron HCl (Ondansetron Hcl 4 Mg/2 Ml Vial) 4 mg IVPUSH Q8H PRN PRN Reason: Nausea and Vomiting Sodium Chloride (0.9 % Sodium Chloride Flush 3 Ml Syringe) 3 ml IVFLUSH QSHIFT [facility] Last Admin: 01/13/24 07:53 Dose: 3 ml Exam Height,Weight and Vital Signs: Height 5 ft 7 in Weight 86.7 kg Last Vital Signs Temp 97.5 F 01/13/24 07:08 Pulse 73 01/13/24 07:52 Resp 18 01/13/24 07:08 BP 140/82 H 01/13/24 07:52 Pulse Ox 95 01/13/24 07:08 O2 Del Method Room Air 01/13/24 07:08 Pertinent Lab Results Pertinent Lab Results: Laboratory Tests 01/11/24 01/12/24 21:44 06:09 WBC 12.7 H 10.4 RBC 4.42 L 4.38 L Hgb 13.6 L 13.3 L Hct 38.3 L 38.8 L MCV 86.7 88.6 MCH 30.8 30.4 MCHC 35.5 34.3 RDW 12.4 12.6 Plt Count 233 226 MPV 9.1 L 9.5 Immature Gran % (Auto) 0.5 H 0.5 H Neut % (Auto) 86.5 H 77.3 H Lymph % (Auto) 7.9 L 14.5 L [place] % (Auto) 4.9 7.4 Eos % (Auto) 0.0 0.1 Baso % (Auto) 0.2 0.2 Lymph # (Auto) 1.0 L 1.5 [place] # (Auto) 0.6 0.8 Eos # (Auto) 0.0 0.0 Baso # (Auto) 0.0 0.0 Abs Immat Gran (auto) 0.06 H 0.05 H Absolute Neuts (auto) 11.0 H 8.1 Absolute Nucleated RBC 0.000 0.000 Nucleated RBC % (auto) 0.0 0.0 Sodium 138 137 Potassium 3.7 3.9 Chloride 104 103 Carbon Dioxide 22 24 Anion Gap 16 14 BUN 21 H 16 Creatinine 0.88 0.76 Estim Creat Clear Calc 97.4 112.8 Estimated GFR > 60 > 60 Random Glucose 162 H 134 H Calcium 9.7 9.4 B-Natriuretic Peptide 26 Airway Heart: rrr Lungs: cta Assessment and Plan Assessment Anesthesia Assessment: Anesthesia Plan Discussed and Chart Reviewed Final Anesthetic Review Family History of Problems with Anesthesia: No History of Problems with Anesthesia: No NPO: Yes ASA Class: III Final Preanesthetic Review: No Changes in Pt Med Stat, Meds/Allgs Chart Reviewed, Consent Obtained/Reviewed and Anes Risks/Benef Reviewed Patient Risk: Intermediate Procedure Risk: Intermediate Anesthetic Plan Anesthetic Plan: GA Disposition: Standard PACU
--- NOTE | 2024-01-13 10:47 | P.PNIM_ITS ---
Subjective Subjective Date of Service: 01/13/24 Interval History: c/o hip pain no chest pain or dyspnea Review of Systems Review of Systems: Yes all other systems are reviewed and are negative Physical Exam 2 Vital Signs: Vital Signs: Last Vital Signs Temp 97.5 F 01/13/24 07:08 Pulse 73 01/13/24 07:52 Resp 18 01/13/24 07:08 BP 140/82 H 01/13/24 07:52 Pulse Ox 95 01/13/24 07:08 O2 Del Method Room Air 01/13/24 07:08 BMI result Body Mass Index 29.9 Gen: in no acute distress HEENT: sclera anicteric, moist mucus membranes Neck: supple Lungs: clear to auscultation bilaterally Heart: regular rate and rhythm, no murmurs Abd: soft, non-tender, non-distended Ext: no edema, RLE shortened/rotated externally Skin: warm/well-perfused Neuro: alert and oriented x3, no focal findings Psych: appropriate affect Objective Data Active Medications Acetaminophen (Acetaminophen 325 Mg Tablet) 650 mg PO Q6H PRN PRN Reason: Pain, Mild (Pain Scale 1-3) Atorvastatin Calcium (Atorvastatin Calcium 80 Mg Tablet) 80 mg PO BEDTIME [facility] Last Admin: 01/12/24 20:43 Dose: 80 mg Documented By: DONTRELL Fenofibrate (Fenofibrate 160 Mg Tablet) 160 mg PO DAILY [facility] Last Admin: 01/13/24 07:51 Dose: Not Given Documented By: ANYA Non-Admin Reason: NPO Hydromorphone HCl (Hydromorphone Hcl 0.5 Mg/0.5 Ml Syringe) 0.5 mg IVPUSH Q4H PRN; Protocol PRN Reason: Pain, Severe (Pain Scale 7-10) Last Admin: 01/13/24 07:54 Dose: 0.5 mg Documented By: ANYA Lactated Ringer's (Lr) 1,000 mls @ 50 mls/hr IVCONT .Q20H [facility] Last Admin: 01/13/24 09:27 Dose: 50 mls/hr Documented By: ANYA Melatonin (Melatonin 3 Mg Tablet) 6 mg PO BEDTIME PRN PRN Reason: Insomnia Last Admin: 01/12/24 23:57 Dose: 6 mg Documented By: DONTRELL Metoprolol Tartrate (Metoprolol Tartrate 25 Mg Tablet) 25 mg PO BID [facility]; Protocol Last Admin: 01/13/24 07:52 Dose: 25 mg Documented By: ANYA Ondansetron HCl (Ondansetron Hcl 4 Mg/2 Ml Vial) 4 mg IVPUSH Q8H PRN PRN Reason: Nausea and Vomiting Sodium Chloride (0.9 % Sodium Chloride Flush 3 Ml Syringe) 3 ml IVFLUSH QSHIFT [facility] Last Admin: 01/13/24 07:53 Dose: 3 ml Documented By: ANYA Labs 01/12/24 06:09 01/12/24 06:09 Labs: Laboratory Results - last 24 hr 01/13/24 09:33 Blood Type O Positive Antibody Screen NEGATIVE Assessment and Plan (1) Fracture of femoral neck, right: Status: Acute Plan d3 53yo M with CAD s/p RCA PCI, HTN, HLD presenting with hip pain after falling while skateboarding, found to have R femoral neck fx R femoral neck fx - plan operative fixation today CAD - s/p stent of RCA; residual disease in LAD + LCX, stress testing unremarkable per Cardiology note Sep 2023, no exertional angina - holding DAPT for operative fixation; continue metoprolol tartrate - RCRI class II [for CAD]; no further preoperative testing indicated HLD - continue atorvastatin + ezetimibie + fenofibrate HTN - continue metoprolol tartrate VTE ppx - SCDs dispo - TBD In my clinical judgment, the patient requires continued inpatient hospitalization for the following reasons: operative fixation Total time managing care of this patient today: 35 minutes. Quality Stroke Does the patient have a stroke diagnosis?: No VTE Prior VTE?: No VTE Risk Level:: Medical - moderate - high VTE Device Contraindication: N/A - Device Ordered VTE Drug Contraindication: Treatment Not Indicated
--- NOTE | 2024-01-13 11:49 | PC.NURSE ---
patient being transferred to OR by OR staff
--- NOTE | 2024-01-13 12:32 | MHC.SHP ---
Pre-Procedural Eval Section A - 24 Hr Update-Section A only Date of Service: 01/13/24 The patient is an INPATIENT: Yes Changes since office visit: No Cold of Flu in the past 2 weeks, No New Medical Problems, No Changes in Medication and No Patient answered all questions The patient has been examined within 24 hours of the surgical procedure. The History & Physical has been completed within 30 days and I have reviewed it.: Yes Section B - Complete if H&P > 30 days Chief Complaint: Fall Allergies: Allergies Allergy/AdvReac Type Severity Reaction Status Date / Time No Known Allergies Allergy Verified 01/11/24 20:03 Plan I have reviewed the history and physical and performed a pertinent physical examination on my patient. No changes have occurred unless specified. Time Spent With Patient Time: Total time managing care of this patient today ____ minutes.
--- NOTE | 2024-01-13 13:09 | MHC.CM.PN ---
CM MET WITH PT PRIOR TO SURGICAL REPAIR OF RIGHT HIP. PT IN [facility] [employer] AND WILL DISCUSS DC PLAN AFTER SURGERY. CM WILL CONTINUE TO FOLLOW FOR DC PLANNING.
--- NOTE | 2024-01-13 13:56 | P.BOP_ITS ---
Brief Operative Note Date of Service: 01/13/24 Pre-op diagnosis: Right femoral neck fracture Post-op diagnosis: same Procedure: CRPP right femoral neck Implants: Strker cannulated screw 95 mm x3 Surgeon: Sammy Craven MD Was an Vocational Nursing Instructor used for this Procedure?: No Estimated blood loss (mL): 25 IV fluids (mL): 750 Pathology: none sent Condition: stable Disposition: PACU
[2024-01-13] MEDS: ceFAZolin Sodium/Dextrose,Iso 2 GM/50 ML PIGGYBACK IV (18:37)
[2024-01-13] MEDS: Atorvastatin Calcium 80 MG TABLET PO (20:23)
[2024-01-14] MEDS: HYDROmorphone HCl 0.5 MG/0.5 ML SYRINGE IVPUSH ×2 (01:55→06:15)
[2024-01-14 03:28] VITALS: BP 142/75; PULSE 63; RESP 16; TEMP 36.4; O2SAT 95
--- NOTE | 2024-01-14 07:36 | PM.PNORT ---
Subjective Subjective Date of Service: 01/14/24 Interval history: POD1 s/p right hip CRPP Patient is resting in bed comfortably No overnight events Pain is uncontrolled No additional complaints Physical Exam Vital Signs: Vital Signs: Last Vital Signs Temp 97.6 F 01/14/24 03:28 Pulse 63 01/14/24 03:28 Resp 16 01/14/24 03:28 BP 142/75 H 01/14/24 03:28 Pulse Ox 95 01/14/24 03:28 O2 Del Method Room Air 01/14/24 03:28 O2 Flow Rate 6 01/13/24 15:00 BMI result Body Mass Index 29.9 Const: General: cooperative, healthy appearing and no acute distress Resp: Effort & Inspection: normal respiratory effort and able to speak in complete sentences Cardio: Rate: regular rate Peripheral pulses: Peripheral pulses 2+ throughout GI: Palpation (GI): Soft to palpation Skin: Lesions: no lesions Rashes: no rashes Extrem: Other: right hip dressing is c/d/i. Drain intact with bloody discharge in collection bulb. Able to dorsi/plantar flex. Calf is supple and nontender. Sensation intact. Pedal pulse intact. Procedures Date of Service Date of Service: 01/14/24 Progress Note: A&P Assessment and plan (1) Fracture of femoral neck, right: Status: Acute Assessment and Plan: Continue pain mgmnt - medication adjustment made Begin Lovenox for dvt ppx begin PT/OT for right hip CRPP Drain to remain in place today, plan to pull tomorrow Dispo planning-Pending PT eval, pain mgmnt, stable for d/c once he has worked with therapy and is medically stable (2) Fracture of hip: Status: Acute Time Spent With Patient Time: Total time managing care of this patient today ____ minutes. Quality Stroke Does the patient have a stroke diagnosis?: No VTE Prior VTE?: No VTE Risk Level:: Medical - moderate - high VTE Device Contraindication: N/A - Device Ordered VTE Drug Contraindication: Treatment Not Indicated
[2024-01-14 07:37] VITALS: BP 145/73; PULSE 69; RESP 18; TEMP 36.6; O2SAT 95
[2024-01-14 07:58] LABS: Hematocrit 41.2 % (42.0-52.0); Hemoglobin 13.8 g/dl (14.0-18.0); Mean Corpuscular HGB Conc 33.5 g/dl (31.0-36.0); Mean Corpuscular Hemoglobin 29.7 pg (27.0-33.0); Mean Corpuscular Volume 88.8 fL (80.0-98.0); Mean Platelet Volume 9.1 fL (9.4-12.4); Platelet Count 230 X10*3/uL (160-400); Red Blood Count 4.64 X10*6/uL (4.60-5.80); Red Cell Distribution Width 12.2 % (11.0-16.0); White Blood Count 11.1 X10*3/uL (4.8-10.8)
[2024-01-14 08:12] VITALS: BP 145/73; PULSE 69
[2024-01-14] MEDS: Fenofibrate 160 MG TABLET PO (08:12)
[2024-01-14] MEDS: Metoprolol Tartrate 25 MG TABLET PO (08:12)
[2024-01-14] MEDS: 0.9 % Sodium Chloride Flush 3 ML SYRINGE IVFLUSH (08:13)
--- NOTE | 2024-01-14 08:17 | HO.POSTANES ---
Post Anesthesia Evaluation Post Anesthesia Evaluation Date of Service: 01/14/24 Vital Signs: Vital Signs Temp Pulse Resp BP Pulse Ox O2 Del Method 01/14/24 08:12 69 145/73 H 01/14/24 07:37 97.8 F 69 18 145/73 H 95 Room Air 01/14/24 03:28 97.6 F 63 16 142/75 H 95 Room Air Anesthesia: General LMA Mental Status: Awake Pain Control: Satisfactory Nausea/Vomiting: None Hydration: Adequate Anesthesia-Related Issues: No Anes. Related Issues
--- NOTE | 2024-01-14 12:26 | MHC.CM.PN ---
EMR reviewed. Patient medically cleared for dc home. Will f/u w/ ortho and PT outpatient. Patient's family will provide transport home in 1 hr. RN aware.
[2024-01-14 17:47] VITALS: BP 145/73; PULSE 69
--- NOTE | 2024-01-16 15:54 | P.DS_ITS ---
DS: Providers Provider Date of Service: 01/14/24 Date of admission: 01/11/24 22:14 Date of discharge: 01/14/24 Primary care physician: None Physician Consults: 01/11/24 22:57 Consult to Orthopedics Routine Consulting Provider: [facility] [place] [facility] Surgeons Reason for consultation: Right femoral neck fracture DS: Diagnosis Discharge Diagnosis (1) Fracture of hip: Status: Acute (2) CAD (coronary artery disease): Status: Acute DS: Summary Hospital Course Hospital Course: From the history and physical by the admitting hospitalist, Demetrio Ramon MD, 01/11/24: This is a 53-year-old male with pertinent history of CAD status post stent, hypertension, mixed hyperlipidemia who presents to the emergency department for evaluation after a fall. Patient states he slipped while skateboarding and fell on his right hip. Did not lose consciousness before or after the fall. Did not hit his head. Chest pain or palpitations prior to the fall. No rhythmic jerking movement of extremities. Patient has difficulty moving right lower extremity since the fall. No fever, chills, shortness of breath, nausea, vomiting, abdominal pain, changes in urinary bowel habits. He is on aspirin and Plavix. In the emergency department, imaging with night femoral neck fracture 53yo M with CAD s/p RCA PCI, HTN, HLD presenting with hip pain after falling while skateboarding, found to have R femoral neck fx for which he was admitted to the medical-surgical unit with Orthopedics consultation. History of CAD was noted. He had a stent of the RCA with residual disease in the LAD + LCX; stress testing was unremarkable per Cardiology note Sep 2023, and he had no exertional angina. On 01/13/24, Dr Sammy Craven performed CRPP of the R femoral neck. He did well perioperatively. Postoperatively, he did well and was able to ambulate and ascend/descend stairs. He was discharged with referral to [facility] [place]'s outpatient PT clinic. For VTE prophylaxis, dual antiplatelet was resumed, except that aspirin was changed from 81 mg daily to 325 mg twice daily for 30 days, after which 81 mg daily can be resumed. He should follow up with [facility] [place] Orthopedics in 2 weeks. Time Attestation Discharge Coordination Time (in mins): 35 Quality: Safe Use of Opioids Does Pt have an Active Cancer Diagnosis on the Problem List?: No Quality: Stroke Does the patient have a stroke diagnosis?: No Physical Exam Vital Signs: Vital Signs: Last Vital Signs Temp 97.8 F 01/14/24 07:37 Pulse 69 01/14/24 17:47 Resp 18 01/14/24 07:37 BP 145/73 H 01/14/24 17:47 Pulse Ox 95 01/14/24 07:37 O2 Del Method Room Air 01/14/24 07:37 O2 Flow Rate 6 01/13/24 15:00 BMI result Body Mass Index 29.9 Gen: in no acute distress HEENT: sclera anicteric, moist mucus membranes Neck: supple Lungs: clear to auscultation bilaterally Heart: regular rate and rhythm, no murmurs Abd: soft, non-tender, non-distended Ext: no edema, R hip with dry dressing Skin: warm/well-perfused Neuro: alert and oriented x3, no focal findings Psych: appropriate affect DS: Data Data Completed and Pending Completed studies during hospitalization [Text1]: Laboratory Results WBC 11.1 X10*3/uL (4.8-10.8) H 01/14/24 07:46 RBC 4.64 X10*6/uL (4.60-5.80) 01/14/24 07:46 Hgb 13.8 g/dl (14.0-18.0) L 01/14/24 07:46 Hct 41.2 % (42.0-52.0) L 01/14/24 07:46 MCV 88.8 fL (80.0-98.0) 01/14/24 07:46 MCH 29.7 pg (27.0-33.0) 01/14/24 07:46 MCHC 33.5 g/dl (31.0-36.0) 01/14/24 07:46 RDW 12.2 % (11.0-16.0) 01/14/24 07:46 Plt Count 230 X10*3/uL (160-400) 01/14/24 07:46 MPV 9.1 fL (9.4-12.4) L 01/14/24 07:46 Immature Gran % (Auto) 0.5 % (0.0-0.4) H 01/12/24 06:09 Neut % (Auto) 77.3 % (45-73) H 01/12/24 06:09 Lymph % (Auto) 14.5 % (20-40) L 01/12/24 06:09 [place] % (Auto) 7.4 % (2-11) 01/12/24 06:09 Eos % (Auto) 0.1 % (0-4) 01/12/24 06:09 Baso % (Auto) 0.2 % (0-2) 01/12/24 06:09 Lymph # (Auto) 1.5 X10*3/uL (1.2-4.9) 01/12/24 06:09 [place] # (Auto) 0.8 X10*3/uL (0.1-1.2) 01/12/24 06:09 Eos # (Auto) 0.0 X10*3/uL (0.0-0.4) 01/12/24 06:09 Baso # (Auto) 0.0 X10*3/uL (0.0-0.2) 01/12/24 06:09 Abs Immat Gran (auto) 0.05 X10*3/uL (0.00-0.03) H 01/12/24 06:09 Absolute Neuts (auto) 8.1 x10*3/uL (2.0-8.3) 01/12/24 06:09 Absolute Nucleated RBC 0.000 X10*3/uL (0.0-0.012) 01/14/24 07:46 Nucleated RBC % (auto) 0.0 /100WBC (0.0-0.2) 01/14/24 07:46 Sodium 137 mmol/L (135-145) 01/12/24 06:09 Potassium 3.9 mmol/L (3.3-5.1) 01/12/24 06:09 Chloride 103 mmol/L (96-108) 01/12/24 06:09 Carbon Dioxide 24 mmol/L (22-29) 01/12/24 06:09 Anion Gap 14 (12-20) 01/12/24 06:09 BUN 16 mg/dL (9-16) 01/12/24 06:09 Creatinine 0.76 mg/dL (0.5-1.4) 01/12/24 06:09 Estim Creat Clear Calc 112.8 01/12/24 06:09 Estimated GFR > 60 01/12/24 06:09 Random Glucose 134 mg/dL (60-115) H 01/12/24 06:09 Calcium 9.4 mg/dL (8.4-10.2) 01/12/24 06:09 B-Natriuretic Peptide 26 pg/mL (<100) 01/12/24 06:09 Blood Type O Positive 01/13/24 09:33 Antibody Screen NEGATIVE 01/13/24 09:33 Impressions Hip/Pelvis X-Ray 01/11/24 20:30 IMPRESSION: Right femoral neck fracture. Abdomen/Pelvis CT 01/11/24 23:28 IMPRESSION: 1. No acute intra-abdominal findings identified. 2. Right femoral neck fracture. Stranding in the subcutaneous tissues lateral to both hips, left greater than right, which could reflect acute contusion. 3. Small calcifications along the urachal remnant with some surrounding thickening, of uncertain clinical significance. In the absence of prior studies to assess stability, repeat exam in approximately 6 months is recommended, as malignant thickening would be difficult to entirely exclude. 4. Hepatic steatosis. 5. Coronary artery calcifications. Correlation with cardiac risk factors is recommended. Guidance Fluoroscopy 01/13/24 13:49 IMPRESSION: Right femoral neck fracture transfixed by [address] cann[address]. Please see Dr. Craven's procedure note for full details. Discharge Plan Discharge Anticipated Discharge Date/Time: 01/14/24 12:12 Patient Disposition: Home, Self-Care Discharge Diagnosis: right femoral neck fracture Referrals: Physical Therapy - [facility] [place] [Outside] - 1 Week (s/p CRPP R femoral neck ) Sammy Craven MD [Physician] - 2 Weeks Physician,None [Primary Care Provider] - 1 Week Discharge Medications: New acetaminophen 500 mg tablet 1,000 mg PO Q6H PRN (Reason: pain) Qty: 60 0RF aspirin 325 mg tablet 325 mg PO BID Qty: 60 0RF Continued atorvastatin 80 mg tablet 80 mg PO BEDTIME Qty: 90 3RF clopidogrel 75 mg tablet 75 mg PO DAILY Qty: 90 3RF ezetimibe 10 mg tablet 10 mg PO DAILY Qty: 90 3RF fenofibrate nanocrystallized 145 mg tablet 145 mg PO DAILY Qty: 90 3RF metoprolol tartrate 25 mg tablet 25 mg PO BID Qty: 180 3RF Discontinued aspirin 81 mg tablet,chewable 81 mg PO DAILY 90 Days Qty: 90 0RF Rx Instructions: Please call and schedule cardiology follow-up Discharge Orders: Discharge Order (Routine); Ordered 01/14/24 Ordered By: Theodore Anthony Diet: Advance to usual diet Activity on Discharge: As tolerated Stand Alone Forms: Patient Portal Discharge page Print Language: Estonian Care Plan Goals: recovery from hip fracture Health Concerns: right femoral neck fracture Plan of Treatment: Weight-bear as tolerated; outpatient physical therapy. Take acetaminophen for pain. Follow up with [facility] [place] Orthopedics in 2 weeks. Change aspirin from 81 mg daily to 325 mg twice daily for 30 days; then return to 81 mg daily. This is to prevent blood clots in your legs. Continue clopidogrel 75 mg daily, atorvastatin 80 mg daily, ezetimibe 10 mg daily, fenofibrate 145 daily, and metoprolol tartrate 25 mg twice daily. Establish primary care as soon as possible. Assessment: See Discharge Summary. Discharge Date/Time: 01/14/24 14:23
--- NOTE | 2024-01-20 17:35 | P.OP_ITS ---
Operative Note Operative Note Date of Service: 01/13/24 Narrative: Date of Service: 01/13/24 Pre-op diagnosis: Right femoral neck fracture Post-op diagnosis: same Procedure: CRPP right femoral neck Implants: Strker cannulated screw 95 mm x3 Surgeon: Sammy Craven MD Was an Custodial Services Manager used for this Procedure?: No Estimated blood loss (mL): 25 IV fluids (mL): 750 Pathology: none sent Condition: stable Disposition: PACU Procedure in detail:? Patient was brought to the operating room and prepped and draped in standard sterile fashion.? Time-out was called to identify proper site procedure proper surgeon and IV antibiotics per weight were administered.? She was positioned on the fracture table with slight internal rotation? and biplanar fluoroscopy confirmed initial fracture reduction.? I then made a stab incision at the level of the lesser trochanter. I had excellent reduction. I then placed 3 k-wires in a inverted triangle configuration through the femoral neck and into the femoral head. I used biplanar fluoro to confirm screw position on the AP and lateral projection. I was satisfied with the position of the k-wires I measured and then placed three partially threaded cancellous screws over the wires. I was satisfied with the fracture reduction and screw position. I copiously irrigated closed with absorbable sutures micky and injected 30 mL of into the area of the incisions.? Patient was placed in sterile dressing awakened from anesthesia brought to recovery room stable condition there were no known complications.
== END 2024-01-14 14:23 | disposition home or self-care (01) | DRG 308 ==
LOC: HO.ED 23:00 → HO.EDOVER 23:51 → HO.S3 01-12 19:17
PROVIDERS: Orthopaedic Surgery; Admitting Provider Student in an Organized Health Care Education/Training Program; Emergency Provider Emergency Medicine Emergency Medical Services; Visit Provider Family Medicine
PROC: 0QS634Z Reposition Right Upper Femur with Internal Fixation Device, Percutaneous Approach (ICD-10-PCS; principal; 2024-01-13 12:30)
DX: S72.001A Fracture of unspecified part of neck of right femur, initial encounter for closed fracture (principal); E78.2 Mixed hyperlipidemia; E78.5 Hyperlipidemia, unspecified; V00.131A Fall from skateboard, initial encounter; Y93.51 Activity, roller skating (inline) and skateboarding; I25.10 Atherosclerotic heart disease of native coronary artery without angina pectoris; I10 Essential (primary) hypertension; Z95.5 Presence of coronary angioplasty implant and graft; Z79.02 Long term (current) use of antithrombotics/antiplatelets; Z79.899 Other long term (current) drug therapy
CPT/HCPCS: 36415; 73502; 74177; 80048; 83880; 85025; 85027; 86850; 86900; 86901; 97161; 99285; C1713; J0690; J1100; J1170; J2250; J2405; J2704; J2795; J3010; J7120; Q9967

== ENCOUNTER → 2024-01-11 22:06 | Outpatient (BNV) | payer OTHER, SELFPAY | PROVIDERS: Emergency Provider Emergency Medicine Emergency Medical Services; Visit Provider Student in an Organized Health Care Education/Training Program | DX: S72.009A Fracture of unspecified part of neck of unspecified femur, initial encounter for closed fracture (principal); I25.10 Atherosclerotic heart disease of native coronary artery without angina pectoris | CPT/HCPCS: 99222; 99232; 99239 ==

== ENCOUNTER → 2024-01-11 22:14 | Outpatient (BNV) | payer OTHER, SELFPAY | PROVIDERS: Admitting Provider Student in an Organized Health Care Education/Training Program; Emergency Provider Emergency Medicine Emergency Medical Services; Visit Provider Physician Assistant | DX: S72.001A Fracture of unspecified part of neck of right femur, initial encounter for closed fracture (principal) | CPT/HCPCS: 27235; 99222; 99231 ==

== ENCOUNTER 2024-02-02 09:46 | Outpatient (REF) | payer OTHER, SELFPAY ==
--- NOTE | ~2024-02-02 | XR_ITS ---
EXAMINATION: XR HIP, RIGHT CLINICAL INFORMATION: Pain in unspecified hip. COMPARISON: 01/13/2024 fluoroscopic images, 01/11/2024 right hip x-rays. TECHNIQUE: AP pelvis and crosstable lateral view of the right hip. FINDINGS: Three (3) cannulated screws transfix previously noted right femoral neck fracture. Hardware appears intact. Expected postsurgical changes with postsurgical micky. Improved alignment. Mild arthritis in the bilateral hip joints. XR/XR hip RT min 2V IMPRESSION: Status post ORIF right femoral neck fracture.
== END 2024-02-02 09:47 | disposition home or self-care (01) ==
LOC: HO.HOSX 09:46
PROVIDERS: Visit Provider Physician Assistant
DX: M25.551 Pain in right hip (principal); S72.001D Fracture of unspecified part of neck of right femur, subsequent encounter for closed fracture with routine healing; Z96.7 Presence of other bone and tendon implants
CPT/HCPCS: 73502

== ENCOUNTER 2024-02-02 11:07 | Outpatient (AMB) | payer OTHER, SELFPAY ==
--- NOTE | 2024-02-02 11:19 | MHC.OFFVIS ---
Intake Visit Reasons: PO right hip CRPP 01/13/24 NE Intake Note: Luther is a 53 year old male who presents today for a post op appointment s/p CRPP right femoral neck 01/13/24 NE. Patient reports he is doing well, states not really painful more of a discomfort. Allergies No Known Allergies Allergy (Verified 02/02/24 11:23) HPI HPI PO right hip CRPP 01/13/24 NE: Details: 53-year-old male who presents in the office today 20 days status post right femoral neck CRPP, which was performed on 01/13/[address] Craven. ? ? While in the office today, the patient reports he is doing well. He would no longer describe what he feels as pain but more as discomfort. ? [facility] Medical History (Updated 02/02/24 @ 11:26 by Manuela Leroy) Collapse of left lung HLD (hyperlipidemia) HTN (hypertension) CAD (coronary artery disease) No known health problems Surgical History S/P cardiac cath (~06/2020) Family History Father CAD (coronary artery disease) Social History Household Members: Family Household Members Other:: 2 Housing: House Do you presently have visiting nurse or other home services: No Alcohol intake: unknown Patient Tobacco Use Status: Never used Tobacco e-Cigarette/Vaping Use: Never Used Second Hand Smoke Exposure: No Substance Use Type: Marijuana service: No Current occupational status: employed Review of Systems Const All systems reviewed & are unremarkable except as noted in HPI and below Physical Exam Const General: cooperative, healthy appearing and no acute distress Resp Effort & Inspection: normal respiratory effort and able to speak in complete sentences Cardio Rate: regular rate Peripheral pulses: Peripheral pulses 2+ throughout GI Palpation (GI): Soft to palpation Skin Lesions: no lesions Rashes: no rashes Extrem Other: Right hip: Incision sites are clean, dry, and intact. Felicitas are intact. No surrounding erythema or drainage. No signs of infection.? Full ROM in all planes. NVI. ? Assessment & Plan Assessment & Plan (1) Fracture of femoral neck, right: Comment: Right femoral neck CRPP 01/13/2024 NE Code(s): S72.001A - Fracture of unspecified part of neck of right femur, initial encounter for closed fracture Category: Medical Plan Mr. Stewart is a 53-year-old male who presents in the office today 20 days status post right femoral neck CRPP, which was performed on 01/13/[address] Craven. ? ? While in the office today, the patient reports he is doing well. He would no longer describe what he feels as pain but more as discomfort.? ? Felicitas were removed and steri-stripes were applied. The patient has his first physical therapy appointment tomorrow, 02/03/2024. He is able to progress to weight-bearing as tolerated with physical therapy. Follow-up will be in four weeks, or sooner if needed. ? ? X-rays of the right hip which were obtained while in the office today and were reviewed by me, Karlene Yao PA-C, revealed intact orthopedic hardware with routine healing.? Patient Instructions: Scribed by Manuela Leroy ophthalmic medical technician, for Karlene Yao PA-C on 02/02/2024 at 11:09 am, EST.? Coding Level of Care Code Global (99643) Diagnoses Fracture of femoral neck, right S72.001A
== END 2024-02-02 11:45 | disposition home or self-care (01) ==
LOC: HO.HOS 11:07
PROVIDERS: PCP Family Medicine; Visit Provider Physician Assistant
DX: S72.001A Fracture of unspecified part of neck of right femur, initial encounter for closed fracture (principal)
CPT/HCPCS: 99024

== ENCOUNTER 2024-02-29 13:00 | Outpatient (RCR) | payer OTHER, SELFPAY ==
[2024-02-02 13:06] VITALS: BP 138/103
--- NOTE | 2024-02-03 12:46 | MHC.PT.EP ---
[facility] [place] Office [place] Office [place] Office [address] Rosetta Vargas [address] [phone] F: [phone] F: [phone] F: [phone] F: [phone] Physical Therapy Plan of Care Date of Evaluation: 02/02/24 Date of Surgery: Diagnosis: R femoral neck fracture s/p CRPP procedure. 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 Pt is deemed an appropriate candidate to receive skilled PT services to address their physical impairments in order to improve their functional ability. Frequency and Duration: The patient will be seen 2 x / wk x 8 wks. Short Term Goals: initiate home program. DC AD. Skilled Nursing Goals: I with home program. Improves LEFI outcome by at least 9 points. Pt will be able to walk 1 mile w/o difficulty w/o AD. Negotiates 1fl of stairs w/o AD and reciprocal fashion. Treatment Plan: Modalities to reduce pain, spasms and effusion. Manual therapy to restore motion and function. Therapeutic exercise to improve strength and flexibility. Neuromuscular re-education for posture and balance. Therapeutic activities to return to functional activities of daily living. Electronically signed by: Palmer Long PT. Please sign and return to therapist. Thank you for your referral.
== END 2024-09-14 07:59 | disposition home or self-care (01) ==
LOC: HO.PT 13:00
PROVIDERS: PCP Family Medicine; Visit Provider Physician Assistant
DX: S72.001D Fracture of unspecified part of neck of right femur, subsequent encounter for closed fracture with routine healing (principal)
CPT/HCPCS: 97110; 97112; 97116; 97161; 97530

== ENCOUNTER 2024-03-01 11:05 | Outpatient (REF) | payer OTHER, SELFPAY ==
--- NOTE | ~2024-03-01 | XR_ITS ---
EXAMINATION: XR HIP, RIGHT CLINICAL INFORMATION: Pain in the right hip. COMPARISON: 02/02/2024 TECHNIQUE: AP and crosstable lateral views of the right hip. AP view of the pelvis. FINDINGS: Mild to moderate osteoarthritis in the in both hips (right side greater than left) is characterized by cephalad joint space narrowing marginal osteophytes and articular sclerosis. 3 partially-threaded cannulated screws are again seen at the right femoral neck. There is slightly increased impaction at the femoral neck as compared to prior and fractures are identified. 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 There is degenerative spondylosis in the lower lumbar spine. XR/XR hip RT min 2V IMPRESSION: 1. Mild to moderate osteoarthritis in both hips (right side greater than left). 2. Slightly increased impaction at the subcapital right femoral neck as compared to prior. No acute fractures are identified.
== END 2024-03-01 11:06 | disposition home or self-care (01) ==
LOC: HO.HOSX 11:05
PROVIDERS: Visit Provider Physician Assistant
DX: M25.511 Pain in right shoulder (principal); M25.551 Pain in right hip
CPT/HCPCS: 73502

== ENCOUNTER 2024-03-01 13:13 | Outpatient (AMB) | payer OTHER, SELFPAY ==
--- NOTE | 2024-03-01 13:30 | MHC.OFFVIS ---
Intake Visit Reasons: PO right hip CRPP 01/13/24 NE Intake Note: Luther is a 54 year old male who presents today for a post op appointment s/p CRPP right femoral neck 01/13/24 NE. Patient reports he is doing good. He states that he has been working with PT and has been noticing improvements in his healing and mobility. Allergies No Known Allergies Allergy (Verified 03/01/24 13:32) HPI HPI PO right hip CRPP 01/13/24 NE: Details: 54-year-old male who presents in the office today 7 weeks status post right femoral neck CRPP, which was performed on 01/13/[address] Craven.?I last saw the patient in the office on 02/02/24 when he was to attend her first physical therapy session on 02/03/24 and was encouraged to progress to weight bearing as tolerated.? ? While in the office today, the patient reports he is doing good. He confirms participating in PT and has been noticing improvements in his healing and mobility. ? [facility] Medical History (Updated 02/02/24 @ 11:26 by Manuela Leroy) Collapse of left lung HLD (hyperlipidemia) HTN (hypertension) CAD (coronary artery disease) No known health problems Surgical History S/P cardiac cath (~06/2020) Family History Father CAD (coronary artery disease) Social History (Updated 03/01/24 @ 13:33 by Joshua Weber) Household Members: Family Household Members Other:: 2 Housing: House Do you presently have visiting nurse or other home services: No Alcohol intake: never Patient Tobacco Use Status: Never used Tobacco e-Cigarette/Vaping Use: Never Used Second Hand Smoke Exposure: No Substance Use Type: Marijuana service: No Current occupational status: employed Review of Systems Const All systems reviewed & are unremarkable except as noted in HPI and below Physical Exam Const General: cooperative, healthy appearing and no acute distress Resp Effort & Inspection: normal respiratory effort and able to speak in complete sentences Cardio Rate: regular rate Peripheral pulses: Peripheral pulses 2+ throughout GI Palpation (GI): Soft to palpation Skin Lesions: no lesions Rashes: no rashes Extrem Other: Right hip: Incision site is completely healed and well approximated with no signs of infection. Good internal and external rotation. Able to perform a straight leg raise. NVI.? Assessment & Plan Assessment & Plan (1) Fracture of femoral neck, right: Comment: Right femoral neck CRPP 01/13/2024 NE Code(s): S72.001A - Fracture of unspecified part of neck of right femur, initial encounter for closed fracture Category: Medical Plan Mr. Stewart is a 54-year-old male who presents in the office today 7 weeks status post right femoral neck CRPP, which was performed on 01/13/[address] Craven.?I last saw the patient in the office on 02/02/24 when he was to attend her first physical therapy session on 02/03/24 and was encouraged to progress to weight bearing as tolerated.? While in the office today, the patient reports he is doing good. He confirms participating in PT and has been noticing improvements in his healing and mobility. ?? ? The patient will continue to work with physical therapy. He is no longer using any assistive devices. He may weight bear as tolerated. Follow-up will be in six weeks, or sooner if needed. ? ? X-rays of the right hip which were obtained while in the office today and were reviewed by me, Karlene Yao PA-C, revealed intact orthopedic hardware with routine healing.? Orders: Orders XR hip RT min 2V Today M25.559 - Pain in unspecified hip Patient Instructions: Scribed by Manuela Leroy rn medical inpatient services, for Karlene Yao PA-C on 03/01/2024 at 1:38 pm, EST.? Coding Level of Care Code Global (35340) Diagnoses Fracture of femoral neck, right S72.001A
== END 2024-03-01 13:43 | disposition home or self-care (01) ==
PROVIDERS: PCP Family Medicine; Visit Provider Physician Assistant
DX: S72.001A Fracture of unspecified part of neck of right femur, initial encounter for closed fracture (principal)
CPT/HCPCS: 99024

== ENCOUNTER 2024-03-14 13:58 | Outpatient (AMB) | payer OTHER, SELFPAY ==
[2024-03-14 14:15] VITALS: BP 126/70; PULSE 75; BMI 28.9
--- NOTE | 2024-03-14 14:15 | MHC.OFFVIS ---
Vital Signs 03/14/24 14:15 Height 5 ft 7 in Weight 184 lb 4.903 oz BMI 28.9 BP 126/70 Blood Pressure Location Lt brachial Position Sitting Pulse 75 Pulse Source Pulse Oximeter Intake Visit Reasons: r/s 01/16/24 4 mos followup Intake Note: 4 mth f/up Crozer Required: No Accompanied by: Self / Same As Patient Allergies No Known Allergies Allergy (Verified 03/01/24 13:32) Medication List - Last Reconciled 03/14/24 by Donn Abrams MD acetaminophen 1,000 mg (2 x 500 mg) PO Q6H PRN aspirin 325 mg PO BID atorvastatin 80 mg PO BEDTIME clopidogrel 75 mg PO DAILY ezetimibe 10 mg PO DAILY fenofibrate nanocrystallized 145 mg PO DAILY metoprolol tartrate 25 mg PO BID HPI Comments Details: 53-year-old gentleman here for follow-up. He underwent right coronary artery PCI in the setting of NSTEMI. He had residual disease in LAD and left circumflex artery. He underwent stress testing which was unremarkable. He is returning now after 2 years. He continues to bike and stay active as before. No exertional chest discomfort shortness of breath. He has some bruises on his arms from skateboarding and falls. No significant bleeding otherwise. He is taking medications regularly. 04/13/2023: Is here for follow-up. He is denying any chest discomfort shortness of breath. Blood pressure is mildly elevated. He is taking medications regularly. 09/12/2023: He returns for follow-up. He has been doing well. No chest discomfort shortness of breath. Clinically stable at this stage. 03/14/2024: He is here for follow-up. He fell while skateboarding and broke his hip. He underwent surgery and has recovered from it. He was on high dose aspirin which she has stopped and is taking baby aspirin at this point. No chest discomfort shortness of breath. Stable from cardiovascular point of view. Blood pressure is well controlled. [facility] Medical History (Updated 02/02/24 @ 11:26 by Manuela Leroy) Collapse of left lung HLD (hyperlipidemia) HTN (hypertension) CAD (coronary artery disease) No known health problems Surgical History (Updated 03/14/24 @ 14:18 by Becky Murray [facility]) History of hip surgery S/P cardiac cath (~06/2020) Family History Father CAD (coronary artery disease) Social History Household Members: Family Household Members Other:: 2 Housing: House Do you presently have visiting nurse or other home services: No Alcohol intake: never Patient Tobacco Use Status: Never used Tobacco e-Cigarette/Vaping Use: Never Used Second Hand Smoke Exposure: No Substance Use Type: Marijuana service: No Current occupational status: employed Review of Systems Const Denies chills, Denies fatigue, Denies fever(s), Denies frequent falls, Denies weakness, Denies weight gain and Denies weight loss ENT Denies dizziness Card Denies chest pain, Denies leg edema, Denies lightheadedness, Denies palpitations, Denies dyspnea and Denies dyspnea on exertion Resp Denies cough, Denies dyspnea and Denies dyspnea on exertion GI Denies hematochezia Musc Denies abnormal gait, Denies muscle weakness, Denies numbness, Denies radiating pain into limb and Denies tingling Neuro Denies abnormal gait, Denies dizziness, Denies frequent falls, Denies numbness, Denies tingling and Denies weakness Endo Denies fatigue and Denies palpitations Physical Exam Vital Signs: Last Vital Signs Pulse 75 03/14/24 14:15 BP 126/70 03/14/24 14:15 BMI result Body Mass Index 28.9 GENERAL APPEARANCE: in no acute distress, pleasant. NECK: no carotid bruit, no jugular venous distention. SKIN: no suspicious lesions, warm and dry. HEART: no murmurs, regular rate and rhythm. LUNGS: clear to auscultation bilaterally. ABDOMEN: soft, nontender. EXTREMITIES: no edema. PERIPHERAL PULSES: equal. NEUROLOGIC: No gross deficits, AAO X 3 Assessment & Plan Assessment & Plan (1) Stable angina: Code(s): I20.8 - Other forms of angina pectoris Category: Medical (2) HTN (hypertension): Code(s): I10 - Essential (primary) hypertension Category: Medical (3) HLD (hyperlipidemia): Code(s): E78.5 - Hyperlipidemia, unspecified Category: Medical Plan Pleasant 54 year gentleman who is here for follow-up. He has known history of coronary disease with previous PCI to right coronary artery in 2020. He had residual disease in diagonal and circumflex artery which was medically treated. He has been on dual antiplatelet therapy since 2019. No bleeding concerns. He had hip fracture after fall while he was skateboarding. He underwent surgery and has recovered. He was given high-dose aspirin after that. I have advised him to stop the aspirin going forward and just use Plavix monotherapy 75 mg daily. We will repeat fasting lipid panel. Blood pressure is well controlled currently. He will see us back in 6 months. Thank you for allowing me to participate in the care of your patient. Please feel free to contact me if you have any questions. Medications: Discontinued aspirin Discontinued Reason: Doctor's Order 325 mg PO BID 60 tabs 0RF Coding Level of Care Code Est Pt Level 4 (36873) Diagnoses Stable angina I20.8 HTN (hypertension) I10 HLD (hyperlipidemia) E78.5
== END 2024-03-14 14:37 | disposition home or self-care (01) ==
PROVIDERS: Visit Provider Internal Medicine Cardiovascular Disease
DX: I20.89 Other forms of angina pectoris (principal); I10 Essential (primary) hypertension; E78.5 Hyperlipidemia, unspecified
CPT/HCPCS: 99214

== ENCOUNTER → 2024-03-14 13:58 | Outpatient (BNVA) | payer OTHER, SELFPAY | PROVIDERS: Visit Provider Internal Medicine Cardiovascular Disease ==

== ENCOUNTER 2024-04-17 09:58 | Outpatient (REF) | payer OTHER, SELFPAY ==
--- NOTE | ~2024-04-17 | XR_ITS ---
EXAMINATION: Pelvis series. Right hip series. CLINICAL INFORMATION: Pain in hip. Postop exam. COMPARISON: Prior x-ray March 01, 2024. TECHNIQUE: AP of the pelvis and AP and lateral views of the right hip FINDINGS: Right hip and pelvis: Postop changes with [address] traversing previously noted femoral neck fracture. Alignment is unchanged. They are the fracture is faintly visualized with some cortical irregularity visible. Mild narrowing of the hip joint space indicative of mild to moderate osteoarthritis unchanged. Minimal if any arthrosis in the left hip. Remaining bone and joints in the pelvis normal. Spondylosis lumbar sacral spine with degenerative disc changes present at the L5-S1 unchanged. XR/XR pelvis 1-2V IMPRESSION: 1. Right hip and pelvis: Stable postoperative changes related to ORIF of right femoral neck fracture. 2. Osteoarthritis of the right hip unchanged. Electronically signed by: Esdras Perez MD 05/02/2024 06:43 AM EDT
--- NOTE | ~2024-04-17 | XR_ITS ---
EXAMINATION: Pelvis series. Right hip series. CLINICAL INFORMATION: Pain in hip. Postop exam. COMPARISON: Prior x-ray March 01, 2024. TECHNIQUE: AP of the pelvis and AP and lateral views of the right hip FINDINGS: Right hip and pelvis: Postop changes with [address] traversing previously noted femoral neck fracture. Alignment is unchanged. They are the fracture is faintly visualized with some cortical irregularity visible. Mild narrowing of the hip joint space indicative of mild to moderate osteoarthritis unchanged. Minimal if any arthrosis in the left hip. Remaining bone and joints in the pelvis normal. Spondylosis lumbar sacral spine with degenerative disc changes present at the L5-S1 unchanged. XR/XR hip RT min 2V IMPRESSION: 1. Right hip and pelvis: Stable postoperative changes related to ORIF of right femoral neck fracture. 2. Osteoarthritis of the right hip unchanged. Electronically signed by: Esdras Perez MD 05/02/2024 06:43 AM EDT
== END 2024-04-17 09:59 | disposition home or self-care (01) ==
LOC: HO.XRAY 09:58
PROVIDERS: Visit Provider Physician Assistant
DX: M25.551 Pain in right hip (principal)
CPT/HCPCS: 72170; 73502

== ENCOUNTER 2024-04-17 12:48 | Outpatient (AMB) | payer OTHER, SELFPAY ==
--- NOTE | 2024-04-17 12:56 | MHC.OFFVIS ---
Intake Visit Reasons: OV - right hip CRPP 01/13/24 NE Intake Note: Luther is a 54 year old male who presents today for a post op appointment s/p CRPP right femoral neck 01/13/24 NE. Patient reports he is doing great. No pain or discomfort today. He mentions when he is going up the stairs he tends to have some pain in his thigh. Allergies No Known Allergies Allergy (Verified 04/17/24 13:00) HPI HPI OV - right hip CRPP 01/13/24 NE: Details: 54-year-old male who presents in the office today 3 months status post right femoral neck CRPP, which was performed on 01/13/[address] Craven. I last saw the patient in the office on 03/01/24 when he was to continue to work with physical therapy and he was instructed to weight bear as tolerated. ? ? While in the office today, the patient reports he is doing good with no pain or discomfort. However, he does reports some pain in the thigh when ambulating up the stairs. ? [facility] Medical History (Updated 02/02/24 @ 11:26 by Manuela Leroy) Collapse of left lung HLD (hyperlipidemia) HTN (hypertension) CAD (coronary artery disease) No known health problems Surgical History (Updated 03/14/24 @ 14:18 by Becky Murray CMA) History of hip surgery S/P cardiac cath (~06/2020) Family History Father CAD (coronary artery disease) Social History Household Members: Family Household Members Other:: 2 Housing: House Do you presently have visiting nurse or other home services: No Alcohol intake: never Patient Tobacco Use Status: Never used Tobacco e-Cigarette/Vaping Use: Never Used Second Hand Smoke Exposure: No Substance Use Type: Marijuana service: No Current occupational status: employed Review of Systems Const All systems reviewed & are unremarkable except as noted in HPI and below Physical Exam Const General: cooperative, healthy appearing and no acute distress Resp Effort & Inspection: normal respiratory effort and able to speak in complete sentences Cardio Rate: regular rate Peripheral pulses: Peripheral pulses 2+ throughout GI Palpation (GI): Soft to palpation Skin Lesions: no lesions Rashes: no rashes Extrem Other: Right hip: Normal to inspection. No ecchymosis, erythema, or edema. Full hip ROM in all planes. No tenderness to palpation over the greater trochanteric bursa. 5/5 strength with resisted hip flexion, knee extension, abduction, and abduction. Able to perform straight leg raise. NVI.? Assessment & Plan Assessment & Plan (1) Fracture of femoral neck, right: Comment: Right femoral neck CRPP 01/13/2024 NE Code(s): S72.001A - Fracture of unspecified part of neck of right femur, initial encounter for closed fracture Category: Medical Plan Mr. Stewart is a 54-year-old male who presents in the office today 3 months status post right femoral neck CRPP, which was performed on 01/13/[address] Craven. I last saw the patient in the office on 03/01/24 when he was to continue to work with physical therapy and he was instructed to weight bear as tolerated. ? ? While in the office today, the patient reports he is doing good with no pain or discomfort. However, he does reports some pain in the thigh when ambulating up the stairs.? ? The patient may return to normal activities as tolerated. He confirms that he has been skateboarding and hiking with no pain or discomfort. Follow-up will be PRN, or sooner if needed. ? ? X-rays of the right hip which were obtained while in the office today and were reviewed by me, Karlene Yao PA-C, revealed intact orthopedic hardware with routine healing.? Orders: Orders XR pelvis 1-2V Today M25.559 - Pain in unspecified hip XR hip RT min 2V Today M25.551 - Pain in right hip Patient Instructions: Scribed by Manuela Leroy medical certification specialist, for Karlene Yao PA-C on 04/17/2024 at 1:04 pm, EST.? Coding Level of Care Code Est Pt Level 3 (86979) Diagnoses Fracture of femoral neck, right S72.001A
== END 2024-04-17 13:12 | disposition home or self-care (01) ==
PROVIDERS: PCP Family Medicine; Visit Provider Physician Assistant
DX: S72.001D Fracture of unspecified part of neck of right femur, subsequent encounter for closed fracture with routine healing (principal)
CPT/HCPCS: 99213